=== PATIENT | female | born 1970 | race Caucasian/White ===

== ENCOUNTER 2016-09-29 20:24 | Inpatient (IN) | payer BC ==
[2016-09-29] MEDS ORDERED: NS 0.9% 1000 ML* 1,000 ML IV ONE ×2 (20:48→21:50)
[2016-09-29] MEDS ORDERED: Ondansetron INJ* 2 MG/ML VIAL IV ONE (21:51)
[2016-09-29] MEDS ORDERED: HYDROmorphone INJ* 1 MG/ML CARPUJECT SYRINGE IV ONE ×2 (21:51→22:49)
[2016-09-29] MEDS: HYDROmorphone INJ* 1 MG/ML CARPUJECT SYRINGE IV ONE (21:57)
[2016-09-29 21:58] LABS: Hematocrit 40 % (35-47); Hemoglobin 13.5 g/dl (12.0-16.0); Mean Corpuscular HGB Conc 34 g/dl (31-36); Mean Corpuscular Hemoglobin 27 pg (27-31); Mean Corpuscular Volume 80 fL (80-97); Mean Platelet Volume 9 um3 (7.4-10.4); Red Cell Distribution Width 13 % (10.5-15); White Blood Count 11.4 10^3/ul (3.5-10.8)
[2016-09-29 22:13] LABS: Albumin 3.6 g/dL (3.2-5.2); BUN/Creatinine Ratio 20.3 (8-20); EGFR African American 118.3 (>60); Globulin 3.5 g/dL (2-4); Total Bilirubin 1.1 mg/dL (0.2-1.0); Total Protein 7.1 g/dL (6.4-8.9)
--- NOTE | 2016-09-29 22:21 | RAD ---
HISTORY: Right lateral foot infection COMPARISONS: June 08, 2014 VIEWS: 2, Frontal and lateral views of the right foot FINDINGS: BONE DENSITY: Normal. BONES: There is periosteal reaction along the proximal first metatarsal is chronic compared to June 08, 2014. There is minimal periosteal reaction along the proximal fourth metatarsal that also appears similar to the 2013 examination. Elsewhere, there is no erosion or periosteal reaction. JOINTS: There is no arthropathy. ALIGNMENT: There is no dislocation. SOFT TISSUES: There is soft tissue swelling over the lateral aspect of the midfoot OTHER FINDINGS: None. IMPRESSION: NO NEW AREAS OF EROSION OR PERIOSTEAL REACTION. PLAIN RADIOGRAPH FINDINGS OF OSTEOMYELITIS ARE RELATIVELY LATE FINDINGS. IF THERE IS PERSISTENT CLINICAL CONCERN FOR OSTEOMYELITIS, RECOMMEND CORRELATION WITH FOLLOWUP IMAGING, THREE-PHASE BONE SCANNING, WHITE BLOOD CELL SCAN, AND/OR MRI OF THE AFFECTED REGION.
[2016-09-29 22:58] LABS: C Reactive Protein 136.18 mg/L (< 5.00)
[2016-09-29] MEDS ORDERED: Vancomycin(*) 1,500 MG in NS 0.9% 250 ML* 250 ML IVPB ONE (23:05)
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
[2016-09-29] MEDS ORDERED: NS 0.9% 250 ML* 250 ML ONE (23:29)
[2016-09-29] MEDS ORDERED: Vancomycin(*) 0 MG in NS 0.9% 250 ML* 250 ML IVPB SCH (23:45)
[2016-09-29] MEDS ORDERED: Vancomycin per Pharmacy* NOTE FOLLOW UP SCH (23:45)
[2016-09-29] MEDS ORDERED: Docusate CAP* 100 MG PO PRN (23:48)
[2016-09-29] MEDS ORDERED: Ondansetron INJ* 2 MG/ML VIAL IV PRN (23:48)
[2016-09-29] MEDS ORDERED: Senna TAB PO PRN (23:48)
[2016-09-29] MEDS ORDERED: Al Hydrox/Mg Hydrox/Simet LIQ* 30 ML UDC PO PRN (23:48)
[2016-09-29] MEDS ORDERED: Zolpidem TAB* 10 MG PO PRN (23:54)
[2016-09-30] MEDS ORDERED: Acetaminophen TAB* 325 MG PO ONE (00:03)
[2016-09-30] MEDS: HYDROmorphone INJ* 1 MG/ML CARPUJECT SYRINGE IV SLOW PU PRN ×4 (00:45→16:38)
[2016-09-30 00:46] LABS: Erythrocyte Sed Rate 66 mm/Hr (0-14)
[2016-09-30] MEDS: HYDROmorphone INJ* 1 MG/ML CARPUJECT SYRINGE IV ONE (01:42)
[2016-09-30] MEDS: Naproxen TAB* 250 MG PO SCH ×3 (01:43→23:15)
[2016-09-30] MEDS: NS 0.9% 1000 ML* 1,000 ML IV SCH ×3 (02:37→23:11)
[2016-09-30] MEDS ORDERED: Acetaminophen TAB* 325 MG PO PRN (04:00)
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
[2016-09-30] MEDS: Heparin VIAL(*) 5000 UNITS/ML VIAL (FIVE THOUSAND) SUBCUT SCH ×3 (05:47→20:30)
[2016-09-30 06:09] LABS: Hematocrit 35 % (35-47); Hemoglobin 11.6 g/dl (12.0-16.0); Mean Corpuscular HGB Conc 33 g/dl (31-36); Mean Corpuscular Hemoglobin 27 pg (27-31); Mean Corpuscular Volume 80 fL (80-97); Mean Platelet Volume 8 um3 (7.4-10.4); Red Blood Count 4.36 10^6/ul (4.0-5.4); Red Cell Distribution Width 13 % (10.5-15)
[2016-09-30 06:25] LABS: BUN/Creatinine Ratio 16.7 (8-20); C Reactive Protein 127.99 mg/L (< 5.00); Calcium 8.1 mg/dL (8.6-10.3); EGFR Non-African American 122.1 (>60); Potassium 3.4 mmol/L (3.5-5.0)
[2016-09-30 06:54] LABS: Erythrocyte Sed Rate 57 mm/Hr (0-14)
[2016-09-30] MEDS ORDERED: metroNIDAZOLE IV 500 MG/100ML* 500 MG/100 ML BAG IVPB SCH ×2 (07:00→21:00)
[2016-09-30] MEDS ORDERED: Levofloxacin 500 MG IVPREMIX(* 500 MG/100 ML BAG IVPB SCH (07:00)
[2016-09-30] MEDS: Magnesium Oxide TAB* 400 MG PO SCH ×2 (08:50→20:26)
[2016-09-30] MEDS: FLUoxetine CAP* 20 MG PO SCH (08:50)
[2016-09-30] MEDS: Calcium/Vitamin D TAB 250/125* TAB PO SCH ×2 (08:51→20:25)
[2016-09-30] MEDS: Montelukast Sodium TAB* 10 MG PO SCH (08:51)
[2016-09-30] MEDS: Cyanocobalamin TAB* 500 MCG PO SCH (08:51)
[2016-09-30] MEDS: buPROPion SR TAB.SR* 150 MG PO SCH (08:51)
[2016-09-30] MEDS: Topiramate TAB(*) 100 MG PO SCH ×2 (08:51→20:27)
[2016-09-30] MEDS: Cholecalciferol TAB* 1000 UNITS PO SCH (08:51)
[2016-09-30] MEDS: Fluticasone NASAL SPRAY 50MCG* 16 gm SPRAY BTL BOTH NARES SCH (08:52)
--- NOTE | 2016-09-30 09:07 | RAD ---
INDICATION: Paranasal sinus pain in a diabetic COMPARISON: None TECHNIQUE: Contiguous axial sections of the axial images of the sinuses were obtained and reconstructed in the coronal and sagittal planes. FINDINGS: The maxillary sinuses exhibit very mild mucosal thickening. The frontal, ethmoid and sphenoid sinuses are all clear. The ostiomeatal complexes appear patent on both sides. There is moderate deviation of the nasal septum toward the left side. The nasal passageways were otherwise clear. IMPRESSION: Very mild paranasal sinus mucosal disease as described above.
[2016-09-30] MEDS: ALPRAZOLAM 1 MG PO SCH (10:22)
[2016-09-30] MEDS: TAPENTADOL 150 MG PO SCH ×2 (10:22→20:28)
--- NOTE | 2016-09-30 13:50 | PN ---
Subjective Date of Service: 09/30/16 Interval History: Patient says pain controlled with Dilaudid. Said the lesion increased in size dramatically and redness over the last few days Objective Active Medications: Acetaminophen (Tylenol Tab*) 650 mg PO Q4H PRN PRN Reason: PAIN Al Hydrox/Mg Hydrox/Simethicone (Maalox Plus*) 30 ml PO Q6H PRN PRN Reason: INDIGESTION Alprazolam (Xanax Xr (Nf)) 1 mg PO DAILY [facility] Last Admin: 09/30/16 10:22 Dose: Not Given Bupropion HCl (Wellbutrin Sr Tab*) 150 mg PO DAILY [facility] Last Admin: 09/30/16 08:51 Dose: 150 mg Calcium/Vitamin D (Oscal D Tab 250/125*) 1 tab PO BID [facility] Last Admin: 09/30/16 08:51 Dose: 1 tab Cholecalciferol (Vitamin D Tab*) 1,000 units PO DAILY [facility] Last Admin: 09/30/16 08:51 Dose: 1,000 units Cyanocobalamin (Vitamin B12 Tab*) 1,000 mcg PO DAILY [facility] Last Admin: 09/30/16 08:51 Dose: 1,000 mcg Docusate Sodium (Colace Cap*) 100 mg PO BID PRN PRN Reason: CONSTIPATION Last Admin: 09/30/16 01:43 Dose: 100 mg Fluoxetine HCl (Prozac Cap*) 40 mg PO DAILY [facility] Last Admin: 09/30/16 08:50 Dose: 40 mg Fluticasone Propionate (Flonase Nasal [place] 50mcg*) 2 spray BOTH NARES DAILY [facility] Last Admin: 09/30/16 08:52 Dose: 2 spray Heparin Sodium (Porcine) (Heparin Vial(*)) 5,000 units SUBCUT Q8HR [facility] Last Admin: 09/30/16 05:47 Dose: 5,000 units Hydromorphone HCl (Dilaudid Iv*) 0.5 mg IV SLOW PU Q2HR PRN PRN Reason: PAIN Last Admin: 09/30/16 11:04 Dose: 0.5 mg Sodium Chloride (Ns 0.9% 1000 Ml*) 1,000 mls @ 125 mls/hr IV PER RATE [facility] Last Admin: 09/30/16 02:37 Dose: 125 mls/hr Levofloxacin/Dextrose (Levaquin 500 Mg Ivpremix(*)) 500 mg in 100 mls @ 100 mls /hr IVPB Q24H [facility] Last Admin: 09/30/16 08:02 Dose: 100 mls/hr Metronidazole/Sodium Chloride (Flagyl 500 Mg Ivpb*) 500 mg in 100 mls @ 100 mls /hr IVPB Q12HR [facility] Magnesium Oxide (Magox 400 Tab*) 400 mg PO BID [facility] Last Admin: 09/30/16 08:50 Dose: 400 mg Montelukast Sodium (Singulair Tab*) 10 mg PO DAILY [facility] Last Admin: 09/30/16 08:51 Dose: 10 mg Naproxen (Naprosyn Tab*) 500 mg PO Q12H [facility] Last Admin: 09/30/16 11:03 Dose: 500 mg Omeprazole (Prilosec Cap*) 40 mg PO DAILY [facility] Ondansetron HCl (Zofran Inj*) 4 mg IV Q4H PRN PRN Reason: NAUSEA/VOMITING Senna (Senokot Tab*) 1 tab PO BID PRN PRN Reason: CONSTIPATION Last Admin: 09/30/16 01:43 Dose: 1 tab Tapentadol (Nucynta Er (Nf)) 150 mg PO Q12HR [facility] Last Admin: 09/30/16 10:22 Dose: Not Given Tapentadol (Nucynta(Nf)) 50 mg PO BID PRN PRN Reason: PAIN Topiramate (Topamax(*)) 100 mg PO DAILY [facility] Last Admin: 09/30/16 08:51 Dose: 100 mg Topiramate (Topamax(*)) 200 mg PO 2100 [facility] Zolpidem Tartrate (Ambien Tab*) 10 mg PO BEDTIME PRN PRN Reason: SLEEP Vital Signs 09/30/16 09/30/16 09/30/16 01:40 01:42 01:46 Temperature 100.5 F Pulse Rate 103 Respiratory 22 24 Rate Blood Pressure 129/69 (mmHg) O2 Sat by Pulse 97 96 Oximetry 09/30/16 09/30/16 09/30/16 01:52 02:42 03:12 Temperature 100.1 F 98.5 F Pulse Rate 100 108 Respiratory 16 16 16 Rate Blood Pressure 122/70 108/61 (mmHg) O2 Sat by Pulse 99 Oximetry 09/30/16 09/30/16 09/30/16 03:19 03:42 06:47 Temperature 97.7 F Pulse Rate 84 Respiratory 16 16 16 Rate Blood Pressure 99/55 (mmHg) O2 Sat by Pulse 97 Oximetry 09/30/16 09/30/16 09/30/16 07:19 07:58 08:12 Temperature 97.6 F Pulse Rate 85 Respiratory 18 16 16 Rate Blood Pressure 95/50 (mmHg) O2 Sat by Pulse 98 98 Oximetry 09/30/16 09/30/16 09/30/16 08:58 10:56 11:04 Temperature 97.8 F Pulse Rate 86 Respiratory 16 16 Rate Blood Pressure 118/66 (mmHg) O2 Sat by Pulse 99 Oximetry 09/30/16 12:04 Temperature Pulse Rate Respiratory 16 Rate Blood Pressure (mmHg) O2 Sat by Pulse Oximetry Oxygen Devices in Use Now: None Eyes: No Scleral Icterus Ears/Nose/Mouth/Throat: Mucous Membranes Moist Neck: No Thyroid Enlargement, Masses Respiratory: Clear to Auscultation Cardiovascular: NL Sounds; No Murmurs; No JVD Abdominal: NL Sounds; No Tenderness; No Distention, No Hepatosplenomegaly Lymphatic: No Cervical Adenopathy Extremities: - - large area of erythema on the dorsal surface of the right foot draining pus Neurological: Alert and Oriented x 3 Result Diagrams: 09/30/16 05:56 09/30/16 05:56 Additional Lab and Data: Lab Results 09/29/16 09/29/16 09/29/16 Range/Units 21:40 21:40 21:40 WBC 11.4 H (3.5-10.8) 10^3/ul RBC 5.00 (4.0-5.4) 10^6/ul Hgb 13.5 (12.0-16.0) g/dl Hct 40 (35-47) % MCV 80 (80-97) fL MCH 27 (27-31) pg MCHC 34 (31-36) g/dl RDW 13 (10.5-15) % Plt Count 315 (150-450) 10^3/ul MPV 9 (7.4-10.4) um3 Neut % (Auto) 79.6 (38-83) % Lymph % (Auto) 10.2 L (25-47) % [place] % (Auto) 9.6 H (1-9) % Eos % (Auto) 0 (0-6) % Baso % (Auto) 0.6 (0-2) % Absolute Neuts (auto) 9.1 H (1.5-7.7) 10^3/ul Absolute Lymphs (auto) 1.2 (1.0-4.8) 10^3/ul Absolute Monos (auto) 1.1 H (0-0.8) 10^3/ul Absolute Eos (auto) 0 (0-0.6) 10^3/ul Absolute Basos (auto) 0.1 (0-0.2) 10^3/ul Absolute Nucleated RBC 0 10^3/ul Nucleated RBC % 0 INR (Anticoag Therapy) 1.05 (0.89-1.11) Sodium 130 L (133-145) mmol/L Potassium 4.0 (3.5-5.0) mmol/L Chloride 96 L (101-111) mmol/L Carbon Dioxide 23 (22-32) mmol/L Anion Gap 11 (2-11) mmol/L BUN 14 (6-24) mg/dL Creatinine 0.69 (0.51-0.95) mg/dL Est GFR ( Amer) 118.3 (>60) Est GFR (Non-Af Amer) 92.0 (>60) BUN/Creatinine Ratio 20.3 H (8-20) Glucose 432 H (70-100) mg/dL Lactic Acid (0.5-2.0) mmol/L Calcium 9.0 (8.6-10.3) mg/dL Total Bilirubin 1.10 H (0.2-1.0) mg/dL AST 9 L (13-39) U/L ALT 6 L (7-52) U/L Alkaline Phosphatase 88 (34-104) U/L C-Reactive Protein 136.18 H (< 5.00) mg/L Total Protein 7.1 (6.4-8.9) g/dL Albumin 3.6 (3.2-5.2) g/dL Globulin 3.5 (2-4) g/dL Albumin/Globulin Ratio 1.0 (1-3) 30/16 Range/Units 21:40 WBC (3.5-10.8) 10^3/ul RBC (4.0-5.4) 10^6/ul Hgb (12.0-16.0) g/dl Hct (35-47) % MCV (80-97) fL MCH (27-31) pg MCHC (31-36) g/dl RDW (10.5-15) % Plt Count (150-450) 10^3/ul MPV (7.4-10.4) um3 Neut % (Auto) (38-83) % Lymph % (Auto) (25-47) % [place] % (Auto) (1-9) % Eos % (Auto) (0-6) % Baso % (Auto) (0-2) % Absolute Neuts (auto) (1.5-7.7) 10^3/ul Absolute Lymphs (auto) (1.0-4.8) 10^3/ul Absolute Monos (auto) (0-0.8) 10^3/ul Absolute Eos (auto) (0-0.6) 10^3/ul Absolute Basos (auto) (0-0.2) 10^3/ul Absolute Nucleated RBC 10^3/ul Nucleated RBC % INR (Anticoag Therapy) (0.89-1.11) Sodium (133-145) mmol/L Potassium (3.5-5.0) mmol/L Chloride (101-111) mmol/L Carbon Dioxide (22-32) mmol/L Anion Gap (2-11) mmol/L BUN (6-24) mg/dL Creatinine (0.51-0.95) mg/dL Est GFR ( Amer) (>60) Est GFR (Non-Af Amer) (>60) BUN/Creatinine Ratio (8-20) Glucose (70-100) mg/dL Lactic Acid 1.2 (0.5-2.0) mmol/L Calcium (8.6-10.3) mg/dL Total Bilirubin (0.2-1.0) mg/dL AST (13-39) U/L ALT (7-52) U/L Alkaline Phosphatase (34-104) U/L C-Reactive Protein (< 5.00) mg/L Total Protein (6.4-8.9) g/dL Albumin (3.2-5.2) g/dL Globulin (2-4) g/dL Albumin/Globulin Ratio (1-3) Microbiology and Other Data: Microbiology 09/30/16 01:25 Skin and Soft Tissue MRSA/MSSA (PCR - Final Foot Right Mrsa Negative S.aureus Positive Gram Stain - Final Wound Culture - Preliminary Staphylococcus Aureus Assess/Plan/Problems-Billing Assessment: 46 year old who presented to [facility] [place] with redness and pus out of her right foot and admitted with cellulitis and abscess - Patient Problems (1) Cellulitis and abscess of foot Current Visit: Yes Status: Acute Code(s): L03.119 - CELLULITIS OF UNSPECIFIED PART OF LIMB; L02.619 - CUTANEOUS ABSCESS OF UNSPECIFIED FOOT SNOMED Code(s): 354238488 Comment: MSSA start Oxacillin 2 gram IV q 4h. Surgical Consult for I and D. (2) Diabetes mellitus Current Visit: Yes Status: Acute Code(s): E11.9 - TYPE 2 DIABETES MELLITUS WITHOUT COMPLICATIONS SNOMED Code(s): 76395227 Comment: Add SSI to pump as she is running high. (3) Chronic pain Current Visit: Yes Status: Acute Code(s): G89.29 - OTHER CHRONIC PAIN SNOMED Code(s): 76283154 Comment: Seems adequately controlled. Continue current regimen. (4) Depression Current Visit: Yes Status: Acute Code(s): F32.9 - MAJOR DEPRESSIVE DISORDER , SINGLE EPISODE, UNSPECIFIED SNOMED Code(s): 35887123 Comment: Stable. Continue current meds. (5) GERD (gastroesophageal reflux disease) Current Visit: Yes Status: Acute Code(s): K21.9 - GASTRO-ESOPHAGEAL REFLUX DISEASE WITHOUT ESOPHAGITIS SNOMED Code(s): 497661291 Comment: Stable. No issues. Continue Omeprazole. (6) Migraines Current Visit: Yes Status: Acute Code(s): G43.909 - MIGRAINE, UNSP, NOT INTRACTABLE, WITHOUT STATUS MIGRAINOSUS SNOMED Code(s): 06156521 Comment: No active issues. Continue topiramate. (7) DVT prophylaxis Current Visit: Yes Status: Acute Code(s): EIL1501 - SNOMED Code(s): 053986093 Comment: heparin (8) Full code status Current Visit: Yes Status: Acute Code(s): Z78.9 - OTHER SPECIFIED HEALTH STATUS SNOMED Code(s): 426469009
[2016-09-30] MEDS ORDERED: Dextrose 50% Syringe 50 ML* 25 GM/50 ML SYRINGE IV PUSH PRN (14:51)
[2016-09-30] MEDS: Oxacillin(*) 2 GM in NS 0.9% 100 ML* 100 ML IVPB SCH ×3 (15:36→23:11)
[2016-09-30] MEDS: Insulin LISPRO* 1 UNITS UNIT SUBCUT SCH ×2 (18:32→20:34)
[2016-09-30] MEDS: Omeprazole CAP* 20 MG PO SCH (20:25)
[2016-09-30] MEDS: TAPENTADOL 50 MG PO PRN (20:29)
--- NOTE | 2016-09-30 21:32 | RAD ---
HISTORY: Right leg edema TECHNIQUE: Multiple transverse and longitudinal ultrasound images were obtained of the veins of the right lower extremity using grayscale, color Doppler, and spectral Doppler imaging with and without compression and with augmentation. FINDINGS: VEINS: The common femoral vein, deep femoral vein, femoral vein and popliteal vein are compressible throughout their course, with normal flow on color Doppler imaging and normal response to augmentation on spectral Doppler imaging. SOFT TISSUES: Grossly normal. No large popliteal fossa cyst was identified. IMPRESSION: No sonographic evidence of deep vein thrombosis.
[2016-10-01] MEDS: TAPENTADOL 50 MG PO PRN ×3 (02:41→14:08)
[2016-10-01] MEDS: Oxacillin(*) 2 GM in NS 0.9% 100 ML* 100 ML IVPB SCH ×6 (03:24→23:07)
[2016-10-01 04:22] LABS: Budding Yeast Present (Absent); Urine Bacteria Absent (Absent); Urine Bilirubin Negative (Negative); Urine Glucose 2+(150 mg/dL) (Negative); Urine Nitrite Negative (Negative)
[2016-10-01] MEDS: Heparin VIAL(*) 5000 UNITS/ML VIAL (FIVE THOUSAND) SUBCUT SCH ×3 (05:55→20:47)
[2016-10-01] MEDS: Insulin LISPRO* 1 UNITS UNIT SUBCUT SCH ×4 (08:34→20:46)
[2016-10-01] MEDS: NS 0.9% 1000 ML* 1,000 ML IV SCH (08:35)
[2016-10-01] MEDS: Cyanocobalamin TAB* 500 MCG PO SCH (08:38)
[2016-10-01] MEDS: Magnesium Oxide TAB* 400 MG PO SCH ×2 (08:38→20:46)
[2016-10-01] MEDS: FLUoxetine CAP* 20 MG PO SCH (08:38)
[2016-10-01] MEDS: buPROPion SR TAB.SR* 150 MG PO SCH (08:38)
[2016-10-01] MEDS: Omeprazole CAP* 20 MG PO SCH (08:38)
[2016-10-01] MEDS: Calcium/Vitamin D TAB 250/125* TAB PO SCH ×2 (08:38→20:45)
[2016-10-01] MEDS: Cholecalciferol TAB* 1000 UNITS PO SCH (08:38)
[2016-10-01] MEDS: Topiramate TAB(*) 100 MG PO SCH ×2 (08:39→20:46)
[2016-10-01] MEDS: TAPENTADOL 150 MG PO SCH ×2 (08:40→20:47)
[2016-10-01] MEDS: ALPRAZOLAM 1 MG PO SCH (08:48)
[2016-10-01] MEDS: Fluticasone NASAL SPRAY 50MCG* 16 gm SPRAY BTL BOTH NARES SCH (08:49)
[2016-10-01] MEDS ORDERED: Silver Sulfadiazine 1%* 50 GM JAR TOPICAL SCH (09:00)
[2016-10-01] MEDS: Montelukast Sodium TAB* 10 MG PO SCH (10:22)
[2016-10-01] MEDS: Naproxen TAB* 250 MG PO SCH ×2 (12:29→23:10)
[2016-10-01] MEDS ORDERED: Zolpidem TAB* 10 MG PO PRN (12:42)
[2016-10-01] MEDS ORDERED: Tapentadol(NF) 50 MG TAB PO SCH (13:00)
--- NOTE | 2016-10-01 13:33 | PN ---
Subjective Date of Service: 10/01/16 Interval History: Patient seen this afternoon with sister at bedside. She states she feels she is doing better, sister agrees. No fever, chills. Erythema on the foot around the wound is improving. Family History: Unchanged from Admission Social History: Unchanged from Admission Past Medical History: Unchanged from Admission Objective Active Medications: Acetaminophen (Tylenol Tab*) 650 mg PO Q4H PRN PRN Reason: PAIN Al Hydrox/Mg Hydrox/Simethicone (Maalox Plus*) 30 ml PO Q6H PRN PRN Reason: INDIGESTION Alprazolam (Xanax Xr (Nf)) 1 mg PO DAILY [facility] Last Admin: 10/01/16 08:48 Dose: 1 mg Bupropion HCl (Wellbutrin Sr Tab*) 150 mg PO DAILY [facility] Last Admin: 10/01/16 08:38 Dose: 150 mg Calcium/Vitamin D (Oscal D Tab 250/125*) 1 tab PO BID [facility] Last Admin: 10/01/16 08:38 Dose: 1 tab Cholecalciferol (Vitamin D Tab*) 1,000 units PO DAILY [facility] Last Admin: 10/01/16 08:38 Dose: 1,000 units Cyanocobalamin (Vitamin B12 Tab*) 1,000 mcg PO DAILY [facility] Last Admin: 10/01/16 08:38 Dose: 1,000 mcg Dextrose (D50w Syringe 50 Ml*) 12.5 gm IV PUSH .FOR FS < 60 - SS PRN PRN Reason: FS < 60 Docusate Sodium (Colace Cap*) 100 mg PO BID PRN PRN Reason: CONSTIPATION Last Admin: 09/30/16 01:43 Dose: 100 mg Fluoxetine HCl (Prozac Cap*) 40 mg PO DAILY [facility] Last Admin: 10/01/16 08:38 Dose: 40 mg Fluticasone Propionate (Flonase Nasal [place] 50mcg*) 2 spray BOTH NARES DAILY [facility] Last Admin: 10/01/16 08:49 Dose: 2 spray Heparin Sodium (Porcine) (Heparin Vial(*)) 5,000 units SUBCUT Q8HR [facility] Last Admin: 10/01/16 12:30 Dose: 5,000 units Hydromorphone HCl (Dilaudid Iv*) 0.5 mg IV SLOW PU Q2HR PRN PRN Reason: PAIN Last Admin: 09/30/16 16:38 Dose: 0.5 mg Sodium Chloride (Ns 0.9% 1000 Ml*) 1,000 mls @ 125 mls/hr IV PER RATE [facility] Last Admin: 10/01/16 08:35 Dose: 125 mls/hr Oxacillin Sodium 2 gm/ Sodium (Chloride) 100 mls @ 200 mls/hr IVPB Q4H [facility] Last Admin: 10/01/16 12:29 Dose: 200 mls/hr Insulin Human Lispro (Humalog*) 0 units SUBCUT ACHS [facility] PRN Reason: Protocol Last Admin: 10/01/16 12:29 Dose: 3 unit Magnesium Oxide (Magox 400 Tab*) 400 mg PO BID [facility] Last Admin: 10/01/16 08:38 Dose: 400 mg Montelukast Sodium (Singulair Tab*) 10 mg PO DAILY [facility] Last Admin: 10/01/16 10:22 Dose: 10 mg Naproxen (Naprosyn Tab*) 500 mg PO Q12H [facility] Last Admin: 10/01/16 12:29 Dose: 500 mg Omeprazole (Prilosec Cap*) 40 mg PO DAILY [facility] Last Admin: 10/01/16 08:38 Dose: 40 mg Ondansetron HCl (Zofran Inj*) 4 mg IV Q4H PRN PRN Reason: NAUSEA/VOMITING Senna (Senokot Tab*) 1 tab PO BID PRN PRN Reason: CONSTIPATION Last Admin: 09/30/16 01:43 Dose: 1 tab Tapentadol (Nucynta Er (Nf)) 150 mg PO Q12HR [facility] Last Admin: 10/01/16 08:40 Dose: 150 mg Tapentadol (Nucynta(Nf)) 50 mg PO QID PRN PRN Reason: PAIN Topiramate (Topamax(*)) 100 mg PO DAILY [facility] Last Admin: 10/01/16 08:39 Dose: 100 mg Topiramate (Topamax(*)) 200 mg PO 2100 [facility] Last Admin: 09/30/16 20:27 Dose: 200 mg Vital Signs 09/30/16 09/30/16 09/30/16 15:31 16:38 17:38 Temperature 97.9 F Pulse Rate 98 Respiratory 16 16 16 Rate Blood Pressure 134/68 (mmHg) O2 Sat by Pulse 99 Oximetry 10/01/16 10/01/1610/01/17 04:41 07:51 08:40 Temperature 97.6 F Pulse Rate 86 Respiratory 16 17 18 Rate Blood Pressure 134/70 (mmHg) O2 Sat by Pulse 100 Oximetry 10/01/16 10/01/16 10/01/16 08:49 10:40 11:34 Temperature 97.5 F Pulse Rate 85 Respiratory 18 18 17 Rate Blood Pressure 130/69 (mmHg) O2 Sat by Pulse 98 Oximetry Oxygen Devices in Use Now: None Appearance: Middle-aged, F, laying in bed in NAD Eyes: No Scleral Icterus Ears/Nose/Mouth/Throat: Mucous Membranes Moist Neck: NL Appearance and Movements; NL JVP Respiratory: Symmetrical Chest Expansion and Respiratory Effort, Clear to Auscultation Cardiovascular: NL Sounds; No Murmurs; No JVD, RRR Abdominal: - - Soft, non-distended, mild TTP diffusely, no rebound/guarding, +BS Lymphatic: No Cervical Adenopathy Extremities: No Edema Skin: - - RLE with dressing in place (based on photos taken by family erythema is receding, still with significant ulceration on lateral aspect of dorsum of the R foot) Neurological: Alert and Oriented x 3 Result Diagrams: 09/30/16 05:56 09/30/16 05:56 Additional Lab and Data: Lab Results 09/29/16 09/29/16 09/29/16 Range/Units 21:40 21:40 21:40 WBC 11.4 H (3.5-10.8) 10^3/ul RBC 5.00 (4.0-5.4) 10^6/ul Hgb 13.5 (12.0-16.0) g/dl Hct 40 (35-47) % MCV 80 (80-97) fL MCH 27 (27-31) pg MCHC 34 (31-36) g/dl RDW 13 (10.5-15) % Plt Count 315 (150-450) 10^3/ul MPV 9 (7.4-10.4) um3 Neut % (Auto) 79.6 (38-83) % Lymph % (Auto) 10.2 L (25-47) % [place] % (Auto) 9.6 H (1-9) % Eos % (Auto) 0 (0-6) % Baso % (Auto) 0.6 (0-2) % Absolute Neuts (auto) 9.1 H (1.5-7.7) 10^3/ul Absolute Lymphs (auto) 1.2 (1.0-4.8) 10^3/ul Absolute Monos (auto) 1.1 H (0-0.8) 10^3/ul Absolute Eos (auto) 0 (0-0.6) 10^3/ul Absolute Basos (auto) 0.1 (0-0.2) 10^3/ul Absolute Nucleated RBC 0 10^3/ul Nucleated RBC % 0 INR (Anticoag Therapy) 1.05 (0.89-1.11) Sodium 130 L (133-145) mmol/L Potassium 4.0 (3.5-5.0) mmol/L Chloride 96 L (101-111) mmol/L Carbon Dioxide 23 (22-32) mmol/L Anion Gap 11 (2-11) mmol/L BUN 14 (6-24) mg/dL Creatinine 0.69 (0.51-0.95) mg/dL Est GFR ( Amer) 118.3 (>60) Est GFR (Non-Af Amer) 92.0 (>60) BUN/Creatinine Ratio 20.3 H (8-20) Glucose 432 H (70-100) mg/dL Lactic Acid (0.5-2.0) mmol/L Calcium 9.0 (8.6-10.3) mg/dL Total Bilirubin 1.10 H (0.2-1.0) mg/dL AST 9 L (13-39) U/L ALT 6 L (7-52) U/L Alkaline Phosphatase 88 (34-104) U/L C-Reactive Protein 136.18 H (< 5.00) mg/L Total Protein 7.1 (6.4-8.9) g/dL Albumin 3.6 (3.2-5.2) g/dL Globulin 3.5 (2-4) g/dL Albumin/Globulin Ratio 1.0 (1-3) 30/16 Range/Units 21:40 WBC (3.5-10.8) 10^3/ul RBC (4.0-5.4) 10^6/ul Hgb (12.0-16.0) g/dl Hct (35-47) % MCV (80-97) fL MCH (27-31) pg MCHC (31-36) g/dl RDW (10.5-15) % Plt Count (150-450) 10^3/ul MPV (7.4-10.4) um3 Neut % (Auto) (38-83) % Lymph % (Auto) (25-47) % [place] % (Auto) (1-9) % Eos % (Auto) (0-6) % Baso % (Auto) (0-2) % Absolute Neuts (auto) (1.5-7.7) 10^3/ul Absolute Lymphs (auto) (1.0-4.8) 10^3/ul Absolute Monos (auto) (0-0.8) 10^3/ul Absolute Eos (auto) (0-0.6) 10^3/ul Absolute Basos (auto) (0-0.2) 10^3/ul Absolute Nucleated RBC 10^3/ul Nucleated RBC % INR (Anticoag Therapy) (0.89-1.11) Sodium (133-145) mmol/L Potassium (3.5-5.0) mmol/L Chloride (101-111) mmol/L Carbon Dioxide (22-32) mmol/L Anion Gap (2-11) mmol/L BUN (6-24) mg/dL Creatinine (0.51-0.95) mg/dL Est GFR ( Amer) (>60) Est GFR (Non-Af Amer) (>60) BUN/Creatinine Ratio (8-20) Glucose (70-100) mg/dL Lactic Acid 1.2 (0.5-2.0) mmol/L Calcium (8.6-10.3) mg/dL Total Bilirubin (0.2-1.0) mg/dL AST (13-39) U/L ALT (7-52) U/L Alkaline Phosphatase (34-104) U/L C-Reactive Protein (< 5.00) mg/L Total Protein (6.4-8.9) g/dL Albumin (3.2-5.2) g/dL Globulin (2-4) g/dL Albumin/Globulin Ratio (1-3) Microbiology and Other Data: Microbiology 09/30/16 01:25 Skin and Soft Tissue MRSA/MSSA (PCR - Final Foot Right Mrsa Negative S.aureus Positive Gram Stain - Final Wound Culture - Preliminary Staphylococcus Aureus Assess/Plan/Problems-Billing Assessment: 46 year old who [place] [facility] [place] and pus out of her right foot and admitted with cellulitis and abscess - Patient Problems (1) Cellulitis and abscess of foot Current Visit: Yes Comment: Continue Oxacillin. Appreciate surgery input, Dr. Hanley did not feel there was any deeper collections but felt this may be more appropriate case for Dr. Denton. Will contact him as well as ID tomorrow. Hold on additional imaging for now. (2) Diabetes mellitus Current Visit: Yes Comment: BGs improved with addition of SSI to insulin pump (3) Chronic pain Current Visit: Yes Comment: Seems adequately controlled. Continue current regimen. (4) Depression Current Visit: Yes Comment: Stable. Continue current meds. (5) GERD (gastroesophageal reflux disease) Current Visit: Yes Comment: Stable. No issues. Continue Omeprazole. (6) Migraines Current Visit: Yes Comment: No active issues. Continue topiramate. (7) DVT prophylaxis Current Visit: Yes Comment: heparin (8) Full code status Current Visit: Yes
--- NOTE | 2016-10-01 22:48 | CONS ---
SURGICAL CONSULTATION: DATE OF CONSULT: 10/01/16 REQUESTING PHYSICIAN: Maynor Lora MD REASON FOR CONSULTATION: Abscess, right foot. HISTORY OF PRESENT ILLNESS: This is a 46-year-old female with type 1 diabetes, psoriatic arthritis, autoimmune disease, who presented to the emergency room on 09/29/16 with worsening right lateral ankle pain. The patient reports that there had been an injury at the site back in July or August and she had noted a scab. She thought it might be a bug bite. Upon further reflection, she thought it might have been an injury resulted from sitting cross leg and on the ground. This was in the area that would periodically scab over and reopen. On 09/25/16, it seemed to be more erythematous and painful and she started to soak the foot. The foot did drain white fluid that she felt was pus. The redness seemed to extend around the area further down the foot and up the foot and therefore, she went to the emergency room where she was evaluated by the emergency room physician who performed an incision and drainage and packed the wound. The patient was admitted to the hospitalist service, started on IV antibiotics, and administered pain medication and has noted some improvement in the erythema and pain. Surgical consultation was requested for evaluation of the wound. PAST MEDICAL HISTORY: Significant for the above-mentioned illnesses, migraine headaches, chronic pyelonephritis, ovarian dysgerminoma, Sjogren's syndrome, Paget's disease, major depression and anxiety, anemia and frozen shoulder. PAST SURGICAL HISTORY: She has had a ALEJO-BSO, bilateral cataract surgery, bilateral vitrectomies, ORIF of the left hip, skin grafting of the right leg, trigger fingers release x7, carpal tunnel release on the right. CURRENT MEDICATIONS: 1. Naprosyn. 2. Docusate. 3. Ambien. 4. Dilaudid. 5. Tapentadol. 6. Heparin subcu. 7. Xanax. 8. Os-Wenceslao. 9. Vitamin D. 10. Vitamin B12. 11. Prozac. 12. Flonase. 13. Magnesium oxide. 14. Singulair. 15. Nucynta. 16. Topamax. 17. Oxacillin. 18. Insulin. 19. Prilosec. 20. Silvadene cream. ALLERGIES: AMOXICILLIN, CLARITHROMYCIN, CLAVULANIC ACID. FAMILY HISTORY: Noncontributory. SOCIAL HISTORY: She lives with her sister, who is at her bedside. Does not smoke, drink alcohol, or use drugs. REVIEW OF SYSTEMS: Significant for the above-mentioned issues, otherwise was negative. PHYSICAL EXAMINATION: She is a 46-year-old female. She is 5 feet 9 inches tall , 215 pounds, temperature is 97.5, pulse 85, respirations 17, O2 saturation 98% on room air. Her blood pressure is 130/69. The right lower extremity foot exhibits erythema over the dorsum extending across an area approximately 6 cm with area of necrotic epidermis overlying this and in the central portion is a yellowed gauze wick with some adjacent 2 mm of necrotic tissue. The wick was removed. The epidermis that was loosely adherent was debrided with gauze and manipulation of the wound reveals no fluctuance. There is a small amount of purulent drainage. The wound was probed with a swab and there is some undermining towards the proximal and inferior aspects for about 2 cm. There was some bleeding and no new pockets of pus that were opened. DIAGNOSTIC STUDIES/LAB DATA: WBC from 09/30/16 were 9.0, hemoglobin was 11.6, platelets were 289. The CRP from 09/30/16 was 127. The imaging of the foot from 09/29/16 indicated plain radiograph findings of osteomyelitis with periosteal reaction along the proximal first metatarsal head and minimal periosteal reaction in the proximal fourth metatarsal with no erosions or periosteal reactions. MICROBIOLOGY: Wound cultures growing Staph aureus MRSA negative. IMPRESSION: A 46-year-old female with complex past medical history with a right foot infection with improving cellulitis, status post drainage of dorsal foot abscess. PLAN/RECOMMENDATIONS: I discussed the findings with the patient as well as with the hospitalist service. Present recommendation is to continue soaking the foot and use dry gauze and Kerlix wrap avoiding tape on the skin. Given the location of the wound and the possibility of osteomyelitis, I believe consultation with Ceferino Denton MD would be appropriate to further guide her treatment. Would continue her IV antibiotics. Would defer on further imaging to Dr. Denton and defer on antibiotics to Dr. Barba. CC: Eda Devine [place]* [id number]/[facility] #: [id number] [facility]
[2016-10-02] MEDS: TAPENTADOL 50 MG PO PRN ×3 (02:58→21:14)
[2016-10-02] MEDS: Oxacillin(*) 2 GM in NS 0.9% 100 ML* 100 ML IVPB SCH ×6 (03:01→22:34)
[2016-10-02] MEDS: Heparin VIAL(*) 5000 UNITS/ML VIAL (FIVE THOUSAND) SUBCUT SCH ×3 (05:21→21:15)
[2016-10-02] MEDS: NS 0.9% 1000 ML* 1,000 ML IV SCH (05:47)
[2016-10-02] MEDS: Fluticasone NASAL SPRAY 50MCG* 16 gm SPRAY BTL BOTH NARES SCH (08:19)
[2016-10-02] MEDS: Insulin LISPRO* 1 UNITS UNIT SUBCUT SCH ×4 (08:19→22:35)
[2016-10-02] MEDS: Cholecalciferol TAB* 1000 UNITS PO SCH (08:22)
[2016-10-02] MEDS: Magnesium Oxide TAB* 400 MG PO SCH ×2 (08:22→21:11)
[2016-10-02] MEDS: Cyanocobalamin TAB* 500 MCG PO SCH (08:22)
[2016-10-02] MEDS: Omeprazole CAP* 20 MG PO SCH (08:22)
[2016-10-02] MEDS: TAPENTADOL 150 MG PO SCH ×2 (08:23→21:13)
[2016-10-02] MEDS: Topiramate TAB(*) 100 MG PO SCH ×2 (08:23→21:12)
[2016-10-02] MEDS: buPROPion SR TAB.SR* 150 MG PO SCH (08:23)
[2016-10-02] MEDS: Montelukast Sodium TAB* 10 MG PO SCH (08:23)
[2016-10-02] MEDS: FLUoxetine CAP* 20 MG PO SCH (08:23)
[2016-10-02] MEDS: ALPRAZOLAM 1 MG PO SCH (08:23)
[2016-10-02] MEDS: Calcium/Vitamin D TAB 250/125* TAB PO SCH ×2 (08:23→21:11)
[2016-10-02] MEDS: Naproxen TAB* 250 MG PO SCH (11:34)
--- NOTE | 2016-10-02 11:54 | PN ---
Subjective Date of Service: 10/02/16 Interval History: Patient feeling OK today. Notes that she continues to have some pedal edema but feels like erythema is improving. No fever or chills. Eating well. Family History: Unchanged from Admission Social History: Unchanged from Admission Past Medical History: Unchanged from Admission Objective Active Medications: Acetaminophen (Tylenol Tab*) 650 mg PO Q4H PRN PRN Reason: PAIN Al Hydrox/Mg Hydrox/Simethicone (Maalox Plus*) 30 ml PO Q6H PRN PRN Reason: INDIGESTION Alprazolam (Xanax Xr (Nf)) 1 mg PO DAILY [facility] Last Admin: 10/02/16 08:23 Dose: 1 mg Bupropion HCl (Wellbutrin Sr Tab*) 150 mg PO DAILY [facility] Last Admin: 10/02/16 08:23 Dose: 150 mg Calcium/Vitamin D (Oscal D Tab 250/125*) 1 tab PO BID [facility] Last Admin: 10/02/16 08:23 Dose: 1 tab Cholecalciferol (Vitamin D Tab*) 1,000 units PO DAILY [facility] Last Admin: 10/02/16 08:22 Dose: 1,000 units Cyanocobalamin (Vitamin B12 Tab*) 1,000 mcg PO DAILY [facility] Last Admin: 10/02/16 08:22 Dose: 1,000 mcg Dextrose (D50w Syringe 50 Ml*) 12.5 gm IV PUSH .FOR FS < 60 - SS PRN PRN Reason: FS < 60 Docusate Sodium (Colace Cap*) 100 mg PO BID PRN PRN Reason: CONSTIPATION Last Admin: 09/30/16 01:43 Dose: 100 mg Fluoxetine HCl (Prozac Cap*) 40 mg PO DAILY [facility] Last Admin: 10/02/16 08:23 Dose: 40 mg Fluticasone Propionate (Flonase Nasal [place] 50mcg*) 2 spray BOTH NARES DAILY [facility] Last Admin: 10/02/16 08:19 Dose: 2 spray Heparin Sodium (Porcine) (Heparin Vial(*)) 5,000 units SUBCUT Q8HR [facility] Last Admin: 10/02/16 05:21 Dose: 5,000 units Hydromorphone HCl (Dilaudid Iv*) 0.5 mg IV SLOW PU Q2HR PRN PRN Reason: PAIN Last Admin: 09/30/16 16:38 Dose: 0.5 mg Sodium Chloride (Ns 0.9% 1000 Ml*) 1,000 mls @ 125 mls/hr IV PER RATE [facility] Last Admin: 10/02/16 05:47 Dose: 125 mls/hr Oxacillin Sodium 2 gm/ Sodium (Chloride) 100 mls @ 200 mls/hr IVPB Q4H [facility] Last Admin: 10/02/16 11:34 Dose: 200 mls/hr Insulin Human Lispro (Humalog*) 0 units SUBCUT ACHS [facility] PRN Reason: Protocol Last Admin: 10/02/16 08:19 Dose: 2 unit Magnesium Oxide (Magox 400 Tab*) 400 mg PO BID [facility] Last Admin: 10/02/16 08:22 Dose: 400 mg Montelukast Sodium (Singulair Tab*) 10 mg PO DAILY [facility] Last Admin: 10/02/16 08:23 Dose: 10 mg Naproxen (Naprosyn Tab*) 500 mg PO Q12H [facility] Last Admin: 10/02/16 11:34 Dose: 500 mg Omeprazole (Prilosec Cap*) 40 mg PO DAILY [facility] Last Admin: 10/02/16 08:22 Dose: 40 mg Ondansetron HCl (Zofran Inj*) 4 mg IV Q4H PRN PRN Reason: NAUSEA/VOMITING Senna (Senokot Tab*) 1 tab PO BID PRN PRN Reason: CONSTIPATION Last Admin: 09/30/16 01:43 Dose: 1 tab Tapentadol (Nucynta Er (Nf)) 150 mg PO Q12HR [facility] Last Admin: 10/02/16 08:23 Dose: 150 mg Tapentadol (Nucynta(Nf)) 50 mg PO QID PRN PRN Reason: PAIN Last Admin: 10/02/16 02:58 Dose: 50 mg Topiramate (Topamax(*)) 100 mg PO DAILY [facility] Last Admin: 10/02/16 08:23 Dose: 100 mg Topiramate (Topamax(*)) 200 mg PO 2100 [facility] Last Admin: 10/01/16 20:46 Dose: 200 mg Zolpidem Tartrate (Ambien Tab*) 10 mg PO BEDTIME PRN PRN Reason: SLEEP Vital Signs 10/01/16 10/01/16 10/01/16 14:08 15:09 16:08 Temperature 97.5 F Pulse Rate 83 Respiratory 18 16 18 Rate Blood Pressure 113/66 (mmHg) O2 Sat by Pulse 99 Oximetry 10/01/16 10/01/16 10/01/16 19:08 20:00 20:47 Temperature 97.4 F Pulse Rate 87 Respiratory 18 18 16 Rate Blood Pressure 97/53 (mmHg) O2 Sat by Pulse 99 Oximetry 10/01/16 10/01/16 10/02/16 22:47 23:49 02:58 Temperature 97.6 F Pulse Rate 83 Respiratory 16 15 16 Rate Blood Pressure 108/66 (mmHg) O2 Sat by Pulse 99 Oximetry 10/02/16 10/02/16 10/02/16 04:58 07:13 08:00 Temperature 98.2 F Pulse Rate 78 Respiratory 16 16 16 Rate Blood Pressure 107/54 (mmHg) O2 Sat by Pulse 97 97 Oximetry Oxygen Devices in Use Now: None Appearance: Young, F, laying in bed in NAD Eyes: No Scleral Icterus Ears/Nose/Mouth/Throat: Mucous Membranes Moist Neck: NL Appearance and Movements; NL JVP Respiratory: Symmetrical Chest Expansion and Respiratory Effort, Clear to Auscultation Cardiovascular: NL Sounds; No Murmurs; No JVD, RRR Abdominal: NL Sounds; No Tenderness; No Distention Lymphatic: No Cervical Adenopathy Extremities: - - Mild R pedal edema Skin: - - Raised, erythematous area over lateral dorsum of R foot with central ulceration with some fibrinous discharge Neurological: Alert and Oriented x 3 Result Diagrams: 09/30/16 05:56 09/30/16 05:56 Additional Lab and Data: Lab Results 09/29/16 09/29/16 09/29/16 Range/Units 21:40 21:40 21:40 WBC 11.4 H (3.5-10.8) 10^3/ul RBC 5.00 (4.0-5.4) 10^6/ul Hgb 13.5 (12.0-16.0) g/dl Hct 40 (35-47) % MCV 80 (80-97) fL MCH 27 (27-31) pg MCHC 34 (31-36) g/dl RDW 13 (10.5-15) % Plt Count 315 (150-450) 10^3/ul MPV 9 (7.4-10.4) um3 Neut % (Auto) 79.6 (38-83) % Lymph % (Auto) 10.2 L (25-47) % [place] % (Auto) 9.6 H (1-9) % Eos % (Auto) 0 (0-6) % Baso % (Auto) 0.6 (0-2) % Absolute Neuts (auto) 9.1 H (1.5-7.7) 10^3/ul Absolute Lymphs (auto) 1.2 (1.0-4.8) 10^3/ul Absolute Monos (auto) 1.1 H (0-0.8) 10^3/ul Absolute Eos (auto) 0 (0-0.6) 10^3/ul Absolute Basos (auto) 0.1 (0-0.2) 10^3/ul Absolute Nucleated RBC 0 10^3/ul Nucleated RBC % 0 INR (Anticoag Therapy) 1.05 (0.89-1.11) Sodium 130 L (133-145) mmol/L Potassium 4.0 (3.5-5.0) mmol/L Chloride 96 L (101-111) mmol/L Carbon Dioxide 23 (22-32) mmol/L Anion Gap 11 (2-11) mmol/L BUN 14 (6-24) mg/dL Creatinine 0.69 (0.51-0.95) mg/dL Est GFR ( Amer) 118.3 (>60) Est GFR (Non-Af Amer) 92.0 (>60) BUN/Creatinine Ratio 20.3 H (8-20) Glucose 432 H (70-100) mg/dL Lactic Acid (0.5-2.0) mmol/L Calcium 9.0 (8.6-10.3) mg/dL Total Bilirubin 1.10 H (0.2-1.0) mg/dL AST 9 L (13-39) U/L ALT 6 L (7-52) U/L Alkaline Phosphatase 88 (34-104) U/L C-Reactive Protein 136.18 H (< 5.00) mg/L Total Protein 7.1 (6.4-8.9) g/dL Albumin 3.6 (3.2-5.2) g/dL Globulin 3.5 (2-4) g/dL Albumin/Globulin Ratio 1.0 (1-3) 09/29/16 Range/Units 21:40 WBC (3.5-10.8) 10^3/ul RBC (4.0-5.4) 10^6/ul Hgb (12.0-16.0) g/dl Hct (35-47) % MCV (80-97) fL MCH (27-31) pg MCHC (31-36) g/dl RDW (10.5-15) % Plt Count (150-450) 10^3/ul MPV (7.4-10.4) um3 Neut % (Auto) (38-83) % Lymph % (Auto) (25-47) % [place] % (Auto) (1-9) % Eos % (Auto) (0-6) % Baso % (Auto) (0-2) % Absolute Neuts (auto) (1.5-7.7) 10^3/ul Absolute Lymphs (auto) (1.0-4.8) 10^3/ul Absolute Monos (auto) (0-0.8) 10^3/ul Absolute Eos (auto) (0-0.6) 10^3/ul Absolute Basos (auto) (0-0.2) 10^3/ul Absolute Nucleated RBC 10^3/ul Nucleated RBC % INR (Anticoag Therapy) (0.89-1.11) Sodium (133-145) mmol/L Potassium (3.5-5.0) mmol/L Chloride (101-111) mmol/L Carbon Dioxide (22-32) mmol/L Anion Gap (2-11) mmol/L BUN (6-24) mg/dL Creatinine (0.51-0.95) mg/dL Est GFR ( Amer) (>60) Est GFR (Non-Af Amer) (>60) BUN/Creatinine Ratio (8-20) Glucose (70-100) mg/dL Lactic Acid 1.2 (0.5-2.0) mmol/L Calcium (8.6-10.3) mg/dL Total Bilirubin (0.2-1.0) mg/dL AST (13-39) U/L ALT (7-52) U/L Alkaline Phosphatase (34-104) U/L C-Reactive Protein (< 5.00) mg/L Total Protein (6.4-8.9) g/dL Albumin (3.2-5.2) g/dL Globulin (2-4) g/dL Albumin/Globulin Ratio (1-3) Microbiology and Other Data: Microbiology 09/30/16 01:25 Skin and Soft Tissue MRSA/MSSA (PCR - Final Foot Right Mrsa Negative S.aureus Positive Gram Stain - Final Wound Culture - Preliminary Staphylococcus Aureus Assess/Plan/Problems-Billing Assessment: 46 year old who presented to [facility] with redness and pus out of her right foot and admitted with cellulitis and abscess - Patient Problems (1) Cellulitis and abscess of foot Current Visit: Yes Comment: Continue Oxacillin. Appreciate surgery input, Dr. Hanley did not feel there was any deeper collections but felt this may be more appropriate case for Dr. Denton. Will contact Dr. Denton and Dr. Barba tomorrow as they are off today due to the holiday. (2) Diabetes mellitus Current Visit: Yes Comment: BGs improved with addition of SSI to insulin pump (3) Chronic pain Current Visit: Yes Comment: Seems adequately controlled. Continue current regimen. (4) Depression Current Visit: Yes Comment: Stable. Continue current meds. (5) GERD (gastroesophageal reflux disease) Current Visit: Yes Comment: Stable. No issues. Continue Omeprazole. (6) Migraines Current Visit: Yes Comment: No active issues. Continue topiramate. (7) DVT prophylaxis Current Visit: Yes Comment: heparin (8) Full code status Current Visit: Yes
[2016-10-02] MEDS ORDERED: PTO: Eszopiclone (NF) 3 MG TAB PO PRN (21:40)
[2016-10-03] MEDS: Naproxen TAB* 250 MG PO SCH ×3 (00:35→23:32)
[2016-10-03] MEDS: NS 0.9% 1000 ML* 1,000 ML IV SCH (03:31)
[2016-10-03] MEDS: Oxacillin(*) 2 GM in NS 0.9% 100 ML* 100 ML IVPB SCH ×6 (03:31→23:27)
[2016-10-03] MEDS: Heparin VIAL(*) 5000 UNITS/ML VIAL (FIVE THOUSAND) SUBCUT SCH ×3 (04:53→21:24)
[2016-10-03] MEDS: Insulin LISPRO* 1 UNITS UNIT SUBCUT SCH (07:41)
[2016-10-03] MEDS: Cyanocobalamin TAB* 500 MCG PO SCH (08:39)
[2016-10-03] MEDS: Cholecalciferol TAB* 1000 UNITS PO SCH (08:39)
[2016-10-03] MEDS: buPROPion SR TAB.SR* 150 MG PO SCH (08:39)
[2016-10-03] MEDS: Montelukast Sodium TAB* 10 MG PO SCH (08:39)
[2016-10-03] MEDS: Calcium/Vitamin D TAB 250/125* TAB PO SCH ×2 (08:39→21:15)
[2016-10-03] MEDS: FLUoxetine CAP* 20 MG PO SCH (08:39)
[2016-10-03] MEDS: Fluticasone NASAL SPRAY 50MCG* 16 gm SPRAY BTL BOTH NARES SCH (08:39)
[2016-10-03] MEDS: TAPENTADOL 50 MG PO PRN ×2 (08:40→21:18)
[2016-10-03] MEDS: Magnesium Oxide TAB* 400 MG PO SCH ×2 (08:40→21:16)
[2016-10-03] MEDS: Omeprazole CAP* 20 MG PO SCH (08:40)
[2016-10-03] MEDS: TAPENTADOL 150 MG PO SCH ×2 (08:40→21:17)
[2016-10-03] MEDS: ALPRAZOLAM 1 MG PO SCH (08:40)
[2016-10-03] MEDS: Topiramate TAB(*) 100 MG PO SCH ×2 (08:44→21:16)
--- NOTE | 2016-10-03 11:47 | PN ---
Subjective Date of Service: 10/03/16 Interval History: Patient seen this morning. Says overall she is feeling better, and "more clear" that before. Did have hypoglycemia this morning which improved with oral intake. No fever or chills. Thinks RLE swelling is improving as well. Family History: Unchanged from Admission Social History: Unchanged from Admission Past Medical History: Unchanged from Admission Objective Active Medications: Acetaminophen (Tylenol Tab*) 650 mg PO Q4H PRN Al Hydrox/Mg Hydrox/Simethicone (Maalox Plus*) 30 ml PO Q6H PRN Alprazolam (Xanax Xr (Nf)) 1 mg PO DAILY [facility] Bupropion HCl (Wellbutrin Sr Tab*) 150 mg PO DAILY [facility] Calcium/Vitamin D (Oscal D Tab 250/125*) 1 tab PO BID [facility] Cholecalciferol (Vitamin D Tab*) 1,000 units PO DAILY [facility] Cyanocobalamin (Vitamin B12 Tab*) 1,000 mcg PO DAILY [facility] Dextrose (D50w Syringe 50 Ml*) 12.5 gm IV PUSH .FOR FS < 60 - SS PRN Docusate Sodium (Colace Cap*) 100 mg PO BID PRN Eszopiclone (Lunesta (Nf)) 3 mg PO BEDTIME PRN Fluoxetine HCl (Prozac Cap*) 40 mg PO DAILY [facility] Fluticasone Propionate (Flonase Nasal [place] 50mcg*) 2 spray BOTH NARES DAILY [facility] Heparin Sodium (Porcine) (Heparin Vial(*)) 5,000 units SUBCUT Q8HR [facility] Hydromorphone HCl (Dilaudid Iv*) 0.5 mg IV SLOW PU Q2HR PRN Sodium Chloride (Ns 0.9% 1000 Ml*) 1,000 mls @ 125 mls/hr IV PER RATE [facility] Oxacillin Sodium 2 gm/ Sodium (Chloride) 100 mls @ 200 mls/hr IVPB Q4H [facility] Magnesium Oxide (Magox 400 Tab*) 400 mg PO BID [facility] Montelukast Sodium (Singulair Tab*) 10 mg PO DAILY [facility] Naproxen (Naprosyn Tab*) 500 mg PO Q12H [facility] Omeprazole (Prilosec Cap*) 40 mg PO DAILY [facility] Ondansetron HCl (Zofran Inj*) 4 mg IV Q4H PRN Senna (Senokot Tab*) 1 tab PO BID PRN Tapentadol (Nucynta Er (Nf)) 150 mg PO Q12HR [facility] Tapentadol (Nucynta(Nf)) 50 mg PO QID PRN Topiramate (Topamax(*)) 100 mg PO DAILY [facility] Topiramate (Topamax(*)) 200 mg PO 2100 [facility] Vital Signs 10/02/16 10/02/16 10/02/16 14:23 15:03 16:23 Temperature 98.3 F Pulse Rate 90 Respiratory 16 16 18 Rate Blood Pressure 128/79 (mmHg) O2 Sat by Pulse 97 Oximetry 10/02/16 10/02/16 10/03/16 23:13 23:16 07:14 Temperature 98.4 F 97.1 F Pulse Rate 86 81 Respiratory 18 16 16 Rate Blood Pressure 129/68 130/72 (mmHg) O2 Sat by Pulse 96 96 Oximetry Oxygen Devices in Use Now: None Appearance: Middle-aged, F, laying in bed in NAD Eyes: No Scleral Icterus Ears/Nose/Mouth/Throat: Mucous Membranes Moist Neck: NL Appearance and Movements; NL JVP Respiratory: Symmetrical Chest Expansion and Respiratory Effort, Clear to Auscultation Cardiovascular: NL Sounds; No Murmurs; No JVD, RRR Abdominal: NL Sounds; No Tenderness; No Distention Lymphatic: No Cervical Adenopathy Extremities: No Edema Skin: - - RLE wrapped, did not evaluate today Neurological: Alert and Oriented x 3 Result Diagrams: 09/30/16 05:56 09/30/16 05:56 Additional Lab and Data: Lab Results 09/29/16 09/29/16 09/29/16 Range/Units 21:40 21:40 21:40 WBC 11.4 H (3.5-10.8) 10^3/ul RBC 5.00 (4.0-5.4) 10^6/ul Hgb 13.5 (12.0-16.0) g/dl Hct 40 (35-47) % MCV 80 (80-97) fL MCH 27 (27-31) pg MCHC 34 (31-36) g/dl RDW 13 (10.5-15) % Plt Count 315 (150-450) 10^3/ul MPV 9 (7.4-10.4) um3 Neut % (Auto) 79.6 (38-83) % Lymph % (Auto) 10.2 L (25-47) % [place] % (Auto) 9.6 H (1-9) % Eos % (Auto) 0 (0-6) % Baso % (Auto) 0.6 (0-2) % Absolute Neuts (auto) 9.1 H (1.5-7.7) 10^3/ul Absolute Lymphs (auto) 1.2 (1.0-4.8) 10^3/ul Absolute Monos (auto) 1.1 H (0-0.8) 10^3/ul Absolute Eos (auto) 0 (0-0.6) 10^3/ul Absolute Basos (auto) 0.1 (0-0.2) 10^3/ul Absolute Nucleated RBC 0 10^3/ul Nucleated RBC % 0 INR (Anticoag Therapy) 1.05 (0.89-1.11) Sodium 130 L (133-145) mmol/L Potassium 4.0 (3.5-5.0) mmol/L Chloride 96 L (101-111) mmol/L Carbon Dioxide 23 (22-32) mmol/L Anion Gap 11 (2-11) mmol/L BUN 14 (6-24) mg/dL Creatinine 0.69 (0.51-0.95) mg/dL Est GFR ( Amer) 118.3 (>60) Est GFR (Non-Af Amer) 92.0 (>60) BUN/Creatinine Ratio 20.3 H (8-20) Glucose 432 H (70-100) mg/dL Lactic Acid (0.5-2.0) mmol/L Calcium 9.0 (8.6-10.3) mg/dL Total Bilirubin 1.10 H (0.2-1.0) mg/dL AST 9 L (13-39) U/L ALT 6 L (7-52) U/L Alkaline Phosphatase 88 (34-104) U/L C-Reactive Protein 136.18 H (< 5.00) mg/L Total Protein 7.1 (6.4-8.9) g/dL Albumin 3.6 (3.2-5.2) g/dL Globulin 3.5 (2-4) g/dL Albumin/Globulin Ratio 1.0 (1-3) 12/30/16 Range/Units 21:40 WBC (3.5-10.8) 10^3/ul RBC (4.0-5.4) 10^6/ul Hgb (12.0-16.0) g/dl Hct (35-47) % MCV (80-97) fL MCH (27-31) pg MCHC (31-36) g/dl RDW (10.5-15) % Plt Count (150-450) 10^3/ul MPV (7.4-10.4) um3 Neut % (Auto) (38-83) % Lymph % (Auto) (25-47) % [place] % (Auto) (1-9) % Eos % (Auto) (0-6) % Baso % (Auto) (0-2) % Absolute Neuts (auto) (1.5-7.7) 10^3/ul Absolute Lymphs (auto) (1.0-4.8) 10^3/ul Absolute Monos (auto) (0-0.8) 10^3/ul Absolute Eos (auto) (0-0.6) 10^3/ul Absolute Basos (auto) (0-0.2) 10^3/ul Absolute Nucleated RBC 10^3/ul Nucleated RBC % INR (Anticoag Therapy) (0.89-1.11) Sodium (133-145) mmol/L Potassium (3.5-5.0) mmol/L Chloride (101-111) mmol/L Carbon Dioxide (22-32) mmol/L Anion Gap (2-11) mmol/L BUN (6-24) mg/dL Creatinine (0.51-0.95) mg/dL Est GFR ( Amer) (>60) Est GFR (Non-Af Amer) (>60) BUN/Creatinine Ratio (8-20) Glucose (70-100) mg/dL Lactic Acid 1.2 (0.5-2.0) mmol/L Calcium (8.6-10.3) mg/dL Total Bilirubin (0.2-1.0) mg/dL AST (13-39) U/L ALT (7-52) U/L Alkaline Phosphatase (34-104) U/L C-Reactive Protein (< 5.00) mg/L Total Protein (6.4-8.9) g/dL Albumin (3.2-5.2) g/dL Globulin (2-4) g/dL Albumin/Globulin Ratio (1-3) Microbiology and Other Data: Microbiology 09/30/16 01:25 Skin and Soft Tissue MRSA/MSSA (PCR - Final Foot Right Mrsa Negative S.aureus Positive Gram Stain - Final Wound Culture - Preliminary Staphylococcus Aureus Assess/Plan/Problems-Billing Assessment: 46 year old who presented to [facility] [place] [place] with redness and pus out of her right foot and admitted with cellulitis and abscess - Patient Problems (1) Cellulitis and abscess of foot Current Visit: Yes Comment: MSSA and GBS on wound culture. Continue Oxacillin. Dr. Denton and Dr. Barba to see patient today. MRI pending. (2) Diabetes mellitus Current Visit: Yes Comment: Hypoglycemic overnight, stopped additional HISS (3) Chronic pain Current Visit: Yes Comment: Seems adequately controlled. Continue current regimen. (4) Depression Current Visit: Yes Comment: Stable. Continue current meds. (5) GERD (gastroesophageal reflux disease) Current Visit: Yes Comment: Stable. No issues. Continue Omeprazole. (6) Migraines Current Visit: Yes Comment: No active issues. Continue topiramate. (7) DVT prophylaxis Current Visit: Yes Comment: heparin (8) Full code status Current Visit: Yes
[2016-10-03] MEDS ORDERED: Tetan/Diph/Pertus SYR(Tdap)* 0.5 ML SYR(BOOSTRIX) use SYR IM ONE (15:38)
--- NOTE | 2016-10-03 19:07 | RAD ---
INDICATION: Nonhealing foot wound in a diabetic COMPARISON: Right foot x-ray dated September 29, 2016 TECHNIQUE: Axial, sagittal and coronal T1 and T2-weighted images of the right foot were obtained. FINDINGS: Involving the proximal head of the third metatarsal there is increased T2 signal in the medullary cavity of the bone (coronal image 21 of 34 and sagittal image 12 of 30). On the corresponding T1-weighted images there is drop of signal at the same location. In the surrounding soft tissues there is mildly increased T2 signal predominantly along the inferior border of the third metatarsal. There is increased T2 signal in the subcutaneous fat overlying the dorsum of the foot with corresponding reduction in signal on the T1-weighted images. IMPRESSION: 1. NONCONTRAST MR FINDINGS ARE COMPATIBLE WITH CELLULITIS OVERLYING THE SUBCUTANEOUS TISSUE OF THE DORSUM OF THE FOOT. 2. FLUID BRIGHT FOCUS IN THE PROXIMAL HEAD OF THE THIRD METATARSAL IS MOST COMPATIBLE WITH OSTEOMYELITIS IN THIS CLINICAL SETTING.
[2016-10-03] MEDS: PTO: Eszopiclone (NF) 3 MG TAB PO PRN (21:18)
--- NOTE | 2016-10-03 21:28 | CONS ---
CONSULTATION REPORT: DATE OF CONSULT: 10/03/16 HISTORY OF PRESENT ILLNESS: Mara is a 46-year-old active female with type 1 diabetes, psoriatic arthritis and almost 3 months of pain and swelling in her right lateral mid foot. She is not sure of the etiology, may be a bug bite, may be a cat bite. She has a couple of cats at home, but she has had somewhat smoldering infection in that area of her right lateral mid foot and has had short courses of oral antibiotics. She was seen in the emergency room on and 1 cm incision was made over a pustule area for some drainage and cultures were sent. These grew out MRSA. She has been in the hospital since on vancomycin. At this point, I interviewed her and examined her foot today. She says overall the pain has decreased significantly as well as the swelling by her account. When examining her foot, she appears to have a warm sensate foot and no pain with range of motion of the ankle or the MTP joints. There is a 5 x 5 cm area of erythema over the dorsal lateral midfoot more less in the area of the sinus tarsi. There is a 1 cm open area in the middle with some fibrous debris. This is from the I and D in the emergency room I assume. I am unable to milk any significant fluid from the area of the debridement. In other words, there is no fluctuance. Plain radiographs of the right foot show no abnormality of the bones. Her ESR is 57, her glucose 256 has been poor control and her white blood count of 9.0. She is currently afebrile. She is on her way for an MRI which would be helpful to look for bone involvement given the chronicity of the infection. In the absence of bone involvement or significant soft tissue collection, I would envision a couple of weeks of IV antibiotics. If there is bone involvement, then she may need extended course of antibiotics and possibly bone debridement. We will follow up after the MRI is obtained. [id number]/[facility] #: [id number] MATT
--- NOTE | 2016-10-03 22:01 | CONS ---
CONSULTATION REPORT: DATE OF CONSULT: 10/03/16 REQUESTING PHYSICIAN: Dr. White. CONSULTING SERVICE: Infectious Disease. REASON FOR CONSULT: Right foot infection. IMPRESSION: 1. Right lateral midfoot abscess which initially drained spontaneously and then had a small pocket drained in the ER. Gram stain showed gram-positive cocci with cultures growing Staphylococcus aureus and group B streptococcus. Staphylococcus aureus is methicillin sensitive. She is improving on oxacillin, given the duration (approximately 2 months) since the wound started, there is a possibility of underlying acute osteomyelitis. 2. Type 1 diabetes with neuropathy. 3. Psoriatic arthritis. 4. ALLERGY TO AMOXICILLIN, CLARITHROMYCIN, which are both GI intolerance. RECOMMENDATIONS: 1. Agree with oxacillin 2 g IV every 4 hours. She is going to have an MRI now to look for osteomyelitis, that would help determine the duration of therapy. We will follow her foot closely to see if she ends up needing any debridement. 2. Tetanus shot which I ordered. HISTORY OF PRESENT ILLNESS: This is a 46-year-old woman with type 1 diabetes and neuropathy, admitted with right foot infection. She feels it developed about 2 months ago with an ulcer there. She was following with a clinical trial specialist. She had some various topical treatments. It helped a little bit but things seemed to progress in the wrong way. She thinks that it may have started as a bug bite. She does note, however, that a cat does claw and bit that part of her body and both these could also been a cat bite. Her last tetanus shot was over 10 years ago. She came to the hospital because of worsening swelling, redness in her whole foot. On the , she was febrile. She was started on broad-spectrum antibiotics. Her wound culture was taken with results as above. The blood cultures were negative. The redness, pain, and swelling has decreased over the last few days. She has not had a foot infection like this before. PAST MEDICAL HISTORY: 1. Type 1 diabetes with peripheral neuropathy. 2. Osteoporosis, multiple fractures. 3. Ovarian cancer, status post hysterectomy. 4. Psoriatic arthritis, on no treatment. 5. Asthma. 6. Chronic pain. 7. Depression. 8. Anxiety. 9. Gastroesophageal reflux disease. 10. Migraine. 11. Sjogren's syndrome. 12. Paget's disease. PAST SURGICAL HISTORY: 1. Status post left hip open reduction, internal fixation in 1993 after a rollerblading accident. 2. Right calf skin graft. 3. Status post multiple bilateral vitrectomies. 4. Status post hysterectomy. 5. Status post bilateral cataract removal. 6. Status post left breast lumpectomy. 7. Status post trigger finger release. 8. Status post right carpal tunnel release. ALLERGIES: AMOXICILLIN, CLARITHROMYCIN, and CLAVULANIC ACID with GI intolerance. MEDICATIONS: 1. Tylenol. 2. Xanax. 3. Calcium. 4. Cholecalciferol. 5. Vitamin B12. 6. Docusate. 7. Lunesta. 8. Fluoxetine. 9. Fluticasone nasal spray. 10. Heparin subcutaneous injection. 11. Singulair. 12. Oxacillin 2 g every 4 hours. 13. Omeprazole. 14. Senna. 15. Tapentadol. 16. Topiramate. 17. Wellbutrin. SOCIAL HISTORY: No travel or sick contacts. No injection drugs. There are cats at home. FAMILY HISTORY: No recurrent infections. REVIEW OF SYSTEMS: All negative except as noted above. PHYSICAL EXAM: Vital Signs: Temperature 36.2, heart rate 81, respiratory rate 16, blood pressure 130/72, O2 sat 96% on room air. General: She is awake and oriented x3, in no acute distress. HEENT: Pupils equal, round, and reactive to light without conjunctival hemorrhage. Oropharynx without lesions. Neck: Supple without nuchal rigidity. Lymph nodes: There is no cervical, supraclavicular, inguinal, axillary, or epitrochlear lymphadenopathy. Heart: Regular rate and rhythm without murmurs, rubs, or gallops. Lungs: Clear to auscultation bilaterally. Abdomen: Soft, nontender, and nondistended without hepatosplenomegaly. Skin: There is no rash or splinter hemorrhages. Musculoskeletal: Right lateral midfoot. There is 1.5 cm indurated area without surrounding fluctuance or crepitus. There is mild surrounding erythema. There is no expressible fluid. There is no pain with range of motion of the ankle. DIAGNOSTIC STUDIES/LAB DATA: White blood cell count 9, hemoglobin 11.6, platelets 289, creatinine 0.5, CRP was 136 on admission, ALT was 6. Please see impressions and recommendations as outlined above which I have discussed with Dr. Denton and Dr. White. Thanks for asking me to see Ms. Ford in consultation. [id number]/[facility] #: [id number] MTDNathalia
[2016-10-04] MEDS: NS 0.9% 1000 ML* 1,000 ML IV SCH ×3 (00:37→20:21)
[2016-10-04] MEDS: Oxacillin(*) 2 GM in NS 0.9% 100 ML* 100 ML IVPB SCH ×6 (03:02→23:26)
[2016-10-04] MEDS: Heparin VIAL(*) 5000 UNITS/ML VIAL (FIVE THOUSAND) SUBCUT SCH ×3 (06:08→21:50)
[2016-10-04] MEDS: ALPRAZOLAM 1 MG PO SCH (10:20)
[2016-10-04] MEDS: Magnesium Oxide TAB* 400 MG PO SCH ×2 (10:20→20:35)
[2016-10-04] MEDS: buPROPion SR TAB.SR* 150 MG PO SCH (10:21)
[2016-10-04] MEDS: Topiramate TAB(*) 100 MG PO SCH ×2 (10:21→20:38)
[2016-10-04] MEDS: Cholecalciferol TAB* 1000 UNITS PO SCH (10:21)
[2016-10-04] MEDS: Omeprazole CAP* 20 MG PO SCH (10:21)
[2016-10-04] MEDS: Calcium/Vitamin D TAB 250/125* TAB PO SCH ×2 (10:21→20:35)
[2016-10-04] MEDS: FLUoxetine CAP* 20 MG PO SCH (10:21)
[2016-10-04] MEDS: Cyanocobalamin TAB* 500 MCG PO SCH (10:22)
[2016-10-04] MEDS: Fluticasone NASAL SPRAY 50MCG* 16 gm SPRAY BTL BOTH NARES SCH (10:22)
[2016-10-04] MEDS: Montelukast Sodium TAB* 10 MG PO SCH (10:22)
[2016-10-04] MEDS: TAPENTADOL 150 MG PO SCH ×2 (10:23→20:35)
[2016-10-04] MEDS: TAPENTADOL 50 MG PO PRN ×3 (10:24→20:36)
--- NOTE | 2016-10-04 11:32 | PN ---
Subjective Date of Service: 10/04/16 Interval History: Patient seen this morning. Reports some occasional pain in the foot but nothing too significant. Has been eating and drinking well. No fever or chills. Upset to hear there is some bone involvement on MRI. Family History: Unchanged from Admission Social History: Unchanged from Admission Past Medical History: Unchanged from Admission Objective Active Medications: Acetaminophen (Tylenol Tab*) 650 mg PO Q4H PRN PRN Reason: PAIN Al Hydrox/Mg Hydrox/Simethicone (Maalox Plus*) 30 ml PO Q6H PRN PRN Reason: INDIGESTION Alprazolam (Xanax Xr (Nf)) 1 mg PO DAILY [facility] Last Admin: 10/04/16 10:20 Dose: 1 mg Bupropion HCl (Wellbutrin Sr Tab*) 150 mg PO DAILY [facility] Last Admin: 10/04/16 10:21 Dose: 150 mg Calcium/Vitamin D (Oscal D Tab 250/125*) 1 tab PO BID [facility] Last Admin: 10/04/16 10:21 Dose: 1 tab Cholecalciferol (Vitamin D Tab*) 1,000 units PO DAILY [facility] Last Admin: 10/04/16 10:21 Dose: 1,000 units Cyanocobalamin (Vitamin B12 Tab*) 1,000 mcg PO DAILY [facility] Last Admin: 10/04/16 10:22 Dose: 1,000 mcg Dextrose (D50w Syringe 50 Ml*) 12.5 gm IV PUSH .FOR FS < 60 - SS PRN PRN Reason: FS < 60 Docusate Sodium (Colace Cap*) 100 mg PO BID PRN PRN Reason: CONSTIPATION Last Admin: 09/30/16 01:43 Dose: 100 mg Eszopiclone (Lunesta (Nf)) 3 mg PO BEDTIME PRN PRN Reason: SLEEP Last Admin: 10/03/16 21:18 Dose: 3 mg Fluoxetine HCl (Prozac Cap*) 40 mg PO DAILY [facility] Last Admin: 10/04/16 10:21 Dose: 40 mg Fluticasone Propionate (Flonase Nasal [place] 50mcg*) 2 spray BOTH NARES DAILY [facility] Last Admin: 10/04/16 10:22 Dose: 2 spray Heparin Sodium (Porcine) (Heparin Vial(*)) 5,000 units SUBCUT Q8HR [facility] Last Admin: 10/04/16 06:08 Dose: 5,000 units Hydromorphone HCl (Dilaudid Iv*) 0.5 mg IV SLOW PU Q2HR PRN PRN Reason: PAIN Last Admin: 09/30/16 16:38 Dose: 0.5 mg Sodium Chloride (Ns 0.9% 1000 Ml*) 1,000 mls @ 125 mls/hr IV PER RATE [facility] Last Admin: 10/04/16 10:23 Dose: 125 mls/hr Oxacillin Sodium 2 gm/ Sodium (Chloride) 100 mls @ 200 mls/hr IVPB Q4H [facility] Last Admin: 10/04/16 07:24 Dose: 200 mls/hr Magnesium Oxide (Magox 400 Tab*) 400 mg PO BID [facility] Last Admin: 10/04/16 10:20 Dose: 400 mg Montelukast Sodium (Singulair Tab*) 10 mg PO DAILY [facility] Last Admin: 10/04/16 10:22 Dose: 10 mg Naproxen (Naprosyn Tab*) 500 mg PO Q12H [facility] Last Admin: 10/03/16 23:32 Dose: 500 mg Omeprazole (Prilosec Cap*) 40 mg PO DAILY [facility] Last Admin: 10/04/16 10:21 Dose: 40 mg Ondansetron HCl (Zofran Inj*) 4 mg IV Q4H PRN PRN Reason: NAUSEA/VOMITING Senna (Senokot Tab*) 1 tab PO BID PRN PRN Reason: CONSTIPATION Last Admin: 09/30/16 01:43 Dose: 1 tab Tapentadol (Nucynta Er (Nf)) 150 mg PO Q12HR [facility] Last Admin: 10/04/16 10:23 Dose: 150 mg Tapentadol (Nucynta(Nf)) 50 mg PO QID PRN PRN Reason: PAIN Last Admin: 10/04/16 10:24 Dose: 50 mg Topiramate (Topamax(*)) 100 mg PO DAILY [facility] Last Admin: 10/04/16 10:21 Dose: 100 mg Topiramate (Topamax(*)) 200 mg PO 2100 [facility] Last Admin: 10/03/16 21:16 Dose: 200 mg Vital Signs 10/03/16 10/03/16 10/03/16 15:23 20:00 21:17 Temperature 97.9 F Pulse Rate 89 Respiratory 16 17 16 Rate Blood Pressure 145/86 (mmHg) O2 Sat by Pulse 99 Oximetry 10/04/16 10/04/16 10/04/16 00:04 06:43 10:23 Temperature 98.4 F 97.7 F Pulse Rate 87 85 Respiratory 18 18 16 Rate Blood Pressure 117/68 120/72 (mmHg) O2 Sat by Pulse 97 96 Oximetry Oxygen Devices in Use Now: None Appearance: Middle-aged, F, laying in bed in NAD Eyes: No Scleral Icterus Ears/Nose/Mouth/Throat: Mucous Membranes Moist Neck: NL Appearance and Movements; NL JVP Respiratory: Symmetrical Chest Expansion and Respiratory Effort, Clear to Auscultation Cardiovascular: NL Sounds; No Murmurs; No JVD, RRR Abdominal: NL Sounds; No Tenderness; No Distention Lymphatic: No Cervical Adenopathy Extremities: No Edema Skin: - - RLE dressing in place Neurological: Alert and Oriented x 3 Result Diagrams: 09/30/16 05:56 09/30/16 05:56 Additional Lab and Data: Lab Results 09/29/16 09/29/16 09/29/16 Range/Units 21:40 21:40 21:40 WBC 11.4 H (3.5-10.8) 10^3/ul RBC 5.00 (4.0-5.4) 10^6/ul Hgb 13.5 (12.0-16.0) g/dl Hct 40 (35-47) % MCV 80 (80-97) fL MCH 27 (27-31) pg MCHC 34 (31-36) g/dl RDW 13 (10.5-15) % Plt Count 315 (150-450) 10^3/ul MPV 9 (7.4-10.4) um3 Neut % (Auto) 79.6 (38-83) % Lymph % (Auto) 10.2 L (25-47) % [place] % (Auto) 9.6 H (1-9) % Eos % (Auto) 0 (0-6) % Baso % (Auto) 0.6 (0-2) % Absolute Neuts (auto) 9.1 H (1.5-7.7) 10^3/ul Absolute Lymphs (auto) 1.2 (1.0-4.8) 10^3/ul Absolute Monos (auto) 1.1 H (0-0.8) 10^3/ul Absolute Eos (auto) 0 (0-0.6) 10^3/ul Absolute Basos (auto) 0.1 (0-0.2) 10^3/ul Absolute Nucleated RBC 0 10^3/ul Nucleated RBC % 0 INR (Anticoag Therapy) 1.05 (0.89-1.11) Sodium 130 L (133-145) mmol/L Potassium 4.0 (3.5-5.0) mmol/L Chloride 96 L (101-111) mmol/L Carbon Dioxide 23 (22-32) mmol/L Anion Gap 11 (2-11) mmol/L BUN 14 (6-24) mg/dL Creatinine 0.69 (0.51-0.95) mg/dL Est GFR ( Amer) 118.3 (>60) Est GFR (Non-Af Amer) 92.0 (>60) BUN/Creatinine Ratio 20.3 H (8-20) Glucose 432 H (70-100) mg/dL Lactic Acid (0.5-2.0) mmol/L Calcium 9.0 (8.6-10.3) mg/dL Total Bilirubin 1.10 H (0.2-1.0) mg/dL AST 9 L (13-39) U/L ALT 6 L (7-52) U/L Alkaline Phosphatase 88 (34-104) U/L C-Reactive Protein 136.18 H (< 5.00) mg/L Total Protein 7.1 (6.4-8.9) g/dL Albumin 3.6 (3.2-5.2) g/dL Globulin 3.5 (2-4) g/dL Albumin/Globulin Ratio 1.0 (1-3) 09/29/16 Range/Units 21:40 WBC (3.5-10.8) 10^3/ul RBC (4.0-5.4) 10^6/ul Hgb (12.0-16.0) g/dl Hct (35-47) % MCV (80-97) fL MCH (27-31) pg MCHC (31-36) g/dl RDW (10.5-15) % Plt Count (150-450) 10^3/ul MPV (7.4-10.4) um3 Neut % (Auto) (38-83) % Lymph % (Auto) (25-47) % [place] % (Auto) (1-9) % Eos % (Auto) (0-6) % Baso % (Auto) (0-2) % Absolute Neuts (auto) (1.5-7.7) 10^3/ul Absolute Lymphs (auto) (1.0-4.8) 10^3/ul Absolute Monos (auto) (0-0.8) 10^3/ul Absolute Eos (auto) (0-0.6) 10^3/ul Absolute Basos (auto) (0-0.2) 10^3/ul Absolute Nucleated RBC 10^3/ul Nucleated RBC % INR (Anticoag Therapy) (0.89-1.11) Sodium (133-145) mmol/L Potassium (3.5-5.0) mmol/L Chloride (101-111) mmol/L Carbon Dioxide (22-32) mmol/L Anion Gap (2-11) mmol/L BUN (6-24) mg/dL Creatinine (0.51-0.95) mg/dL Est GFR ( Amer) (>60) Est GFR (Non-Af Amer) (>60) BUN/Creatinine Ratio (8-20) Glucose (70-100) mg/dL Lactic Acid 1.2 (0.5-2.0) mmol/L Calcium (8.6-10.3) mg/dL Total Bilirubin (0.2-1.0) mg/dL AST (13-39) U/L ALT (7-52) U/L Alkaline Phosphatase (34-104) U/L C-Reactive Protein (< 5.00) mg/L Total Protein (6.4-8.9) g/dL Albumin (3.2-5.2) g/dL Globulin (2-4) g/dL Albumin/Globulin Ratio (1-3) Microbiology and Other Data: Microbiology 09/30/16 01:25 Skin and Soft Tissue MRSA/MSSA (PCR - Final Foot Right Mrsa Negative S.aureus Positive Gram Stain - Final Wound Culture - Preliminary Staphylococcus Aureus Assess/Plan/Problems-Billing Assessment: 46 year old who presented to [facility] with redness and pus out of her right foot and admitted with cellulitis and abscess - Patient Problems (1) Cellulitis and abscess of foot Current Visit: Yes Comment: MSSA and GBS on wound culture. Continue Oxacillin for now. MRI shows 3rd metatarsal head osteo. Will await further recommendations from ID and Ortho. PICC ordered. Patient may prefer coming to infusion clinic rather than home therapy. (2) Diabetes mellitus Current Visit: Yes Comment: Slight hypoglycemia which patient thinks is because she didnt get her usual late night snack. Continue insulin pump with no additional therapy. (3) Chronic pain Current Visit: Yes Comment: Seems adequately controlled. Continue current regimen. (4) Depression Current Visit: Yes Comment: Stable. Continue current meds. (5) GERD (gastroesophageal reflux disease) Current Visit: Yes Comment: Stable. No issues. Continue Omeprazole. (6) Migraines Current Visit: Yes Comment: No active issues. Continue topiramate. (7) DVT prophylaxis Current Visit: Yes Comment: heparin (8) Full code status Current Visit: Yes
[2016-10-04] MEDS: Naproxen TAB* 250 MG PO SCH ×2 (12:12→23:25)
[2016-10-04] MEDS: PTO: Eszopiclone (NF) 3 MG TAB PO PRN (20:36)
[2016-10-05] MEDS: Oxacillin(*) 2 GM in NS 0.9% 100 ML* 100 ML IVPB SCH ×3 (03:21→14:12)
[2016-10-05] MEDS: Heparin VIAL(*) 5000 UNITS/ML VIAL (FIVE THOUSAND) SUBCUT SCH ×2 (05:51→14:55)
[2016-10-05] MEDS: NS 0.9% 1000 ML* 1,000 ML IV SCH (05:57)
[2016-10-05 08:05] VITALS: BP 137/78
[2016-10-05] MEDS: Cyanocobalamin TAB* 500 MCG PO SCH (08:30)
[2016-10-05] MEDS: buPROPion SR TAB.SR* 150 MG PO SCH (08:30)
[2016-10-05] MEDS: Calcium/Vitamin D TAB 250/125* TAB PO SCH (08:30)
[2016-10-05] MEDS: Fluticasone NASAL SPRAY 50MCG* 16 gm SPRAY BTL BOTH NARES SCH (08:30)
[2016-10-05] MEDS: Cholecalciferol TAB* 1000 UNITS PO SCH (08:31)
[2016-10-05] MEDS: Omeprazole CAP* 20 MG PO SCH (08:31)
[2016-10-05] MEDS: FLUoxetine CAP* 20 MG PO SCH (08:31)
[2016-10-05] MEDS: Magnesium Oxide TAB* 400 MG PO SCH (08:32)
[2016-10-05] MEDS: Topiramate TAB(*) 100 MG PO SCH (08:32)
[2016-10-05] MEDS: Montelukast Sodium TAB* 10 MG PO SCH (08:32)
[2016-10-05] MEDS: ALPRAZOLAM 1 MG PO SCH (08:35)
[2016-10-05] MEDS: TAPENTADOL 50 MG PO PRN ×2 (08:36→15:41)
[2016-10-05] MEDS: TAPENTADOL 150 MG PO SCH (08:36)
--- NOTE | 2016-10-05 09:02 | PN ---
Progress Note - Progress Note SOAP: Subjective: [Pt was seen this morning in bed. Pt was sitting up and states that she is in no acute pain. Pt denies any fevers, chills, night sweats, SOB or palpitations.] Objective: [General: pt is awake, alert and oriented. In no acute distress. MSK: RLE: Dressing is c/d/i. The wound has some mild erythema surrounding it. The wound is filled with yellow mucus. Pt is able to move toes without pain and has sensation to light touch in area surrounding the wound. Vital Signs Temp 97.8 F 10/05/16 07:56 Pulse 82 10/05/16 07:56 Resp 16 10/05/16 08:36 BP 137/78 10/05/16 07:56 Pulse Ox 100 10/05/16 07:56 Intake & Output 10/04/16 10/05/16 10/05/16 18:59 06:59 18:59 Intake Total 1120 2376 Balance 1120 2376 Intake: IV Fluids 2376 NS (0.9%) 2376 Oral 1120 0 Other: Estimated Void Medium Medium Date of Last Bowel 10/04/2016 Movement # Bowel Movements 1 1 Estimated Stool Amount Medium # Voids 1 1 Microbiology 09/29/16 21:40 Aerobic Blood Culture - Final Blood Venous No Growth Day 5 Anaerobic Blood Culture - Final No Growth Day 5 Blood Culture - Final 09/29/16 21:30 Aerobic Blood Culture - Final Blood Venous No Growth Day 5 Anaerobic Blood Culture - Final No Growth Day 5 Blood Culture - Final 09/30/16 01:25 Skin and Soft Tissue MRSA/MSSA (PCR - Final Foot Right Mrsa Negative S.aureus Positive Gram Stain - Final Wound Culture - Final Staphylococcus Aureus Strep Agalactiae - (Group B) 10/01/16 04:00 Urine Culture - Final Urine No Growth (<1,000 CFU/mL) ] Assessment: [Cellulitis of R midfoot, Osteomyelitis proximal head of 3rd metatarsal. ] Plan: [Continue antibiotics. Will continue to monitor for need for surgical debridement ] Continue care for co-morbidities per hospitalists.
--- NOTE | 2016-10-05 10:37 | PN ---
Progress Note - Progress Note SOAP: Subjective: DOS: 10/05/16 CC: foot infection HPI: 46 yo T1DM with chronic right midfoot ulcer admitted with wound infection and cellulitis. Swelling, pain, redness improving, no drainage now. No fever, rash, or diarrhea. Objective: [] Vital Signs Temp 36.6 C 10/05/16 07:56 Pulse 82 10/05/16 07:56 Resp 16 10/05/16 08:36 BP 137/78 10/05/16 07:56 Pulse Ox 100 10/05/16 07:56 Intake & Output 10/04/16 10/05/16 10/05/16 18:59 06:59 18:59 Intake Total 1120 2376 120 Balance 1120 2376 120 Intake: IV Fluids 2376 NS (0.9%) 2376 Oral 1120 0 120 Other: Estimated Void Medium Medium Date of Last Bowel 10/04/2016 Movement # Bowel Movements 1 1 Estimated Stool Amount Medium # Voids 1 1 Gen:Awake, Ox3 HEENT:PERRL, MMM Neck:supple Heart:RRR no murmur Lungs:CTA BL Abd:+BS NTND soft Skin: no rash MSK: R lateral midfoot 1.5 cm ulcer with fibrin, mild surrounding edema, no erythema or fluctuance Microbiology 09/29/16 21:40 Blood Venous Aerobic Blood Culture - Final No Growth Day 5 09/29/16 21:40 Blood Venous Anaerobic Blood Culture - Final No Growth Day 5 09/29/16 21:40 Blood Venous Blood Culture - Final 09/29/16 21:30 Blood Venous Aerobic Blood Culture - Final No Growth Day 5 09/29/16 21:30 Blood Venous Anaerobic Blood Culture - Final No Growth Day 5 09/29/16 21:30 Blood Venous Blood Culture - Final Assessment: 1. Right midfoot osteomyelitis, chronic, diabetes related; due to MSSA and Grp B Strep 2. Right midfoot chronic non pressure wound, with cellulitis and myositis both improving 3. T1 DM with neuropathy 4. amox allergy, tolerating oxacillin Plan: 1. Oxacillin 2 gm iv Q4hrs day 6, can use ceftriaxone 2 gm IV Q24hrs for discharge; orders written for this for 5 more weeks with weekly cbc, cmp, crp, dressing changes. 2. follow up with me and Dr Denton as outpatient. May need debridement of bone eventually.
--- NOTE | 2016-10-05 11:50 | DCNOTE ---
Patient seen this morning. Feels well. Pleased she will be going home today. On exam, RRR, s1 and s2 present, no m/g/r, lungs CTA B/L, no w/r/r, abd soft, NTND, BS+, RLE wrapped D/C today on CTX daily which will continue in infusion center. No surgical intervention at this point, will continue to follow-up with Dr. Denton as an outpatient.
[2016-10-05] MEDS ORDERED: cefTRIAXone(*) 2 GM in NS 0.9% 100 ML* 100 ML IVPB SCH (12:00)
[2016-10-05] MEDS: Naproxen TAB* 250 MG PO SCH (14:54)
--- NOTE | 2016-10-06 14:27 | DS ---
DISCHARGE SUMMARY: DATE OF ADMISSION: 09/30/16 DATE OF DISCHARGE: 10/05/16 PRIMARY CARE PHYSICIAN: Dr. Levi. CONSULTS DURING HOSPITALIZATION: Dr. Eloy Hanley, Surgery; Dr. Ceferino Denton , Orthopedics; Dr. Martin Barba, Infectious Diseases. PRINCIPAL DISCHARGE DIAGNOSES: Right lower extremity abscess and third metatarsal head osteomyelitis. SECONDARY DIAGNOSES: 1. Type 1 diabetes with insulin pump. 2. Depression. 3. Anxiety. 4. Gastroesophageal reflux disease. 5. Migraine. 6. Sjogren's syndrome. 7. Chronic pain. 8. Psoriatic arthritis. STUDIES DURING HOSPITALIZATION: 1. Foot x-ray. Impression: No new areas of erosion or periosteal reaction. Plain radiographic findings of osteomyelitis are relatively late findings. If there is persistent clinical concern for osteomyelitis, recommend correlation with followup imaging. 2. CT sinus. Impression: Very mild paranasal sinus mucosal disease as described above. 3. Right lower extremity Doppler. Impression: No sonographic evidence of DVT. 4. MRI of the right lower extremity. Impression: Noncontrast MRI findings are compatible with cellulitis overlying the subcutaneous tissue at the dorsum of the foot. Bright focus in the proximal head of the third metatarsal is most compatible with osteomyelitis in the clinical setting. DISCHARGE MEDICATIONS: 1. Ceftriaxone 2 g IV daily through the Infusion Center. 2. Xanax 1 mg by mouth daily as needed for anxiety. 3. Prozac 40 mg by mouth daily. 4. Bupropion 150 mg by mouth daily. 5. Nucynta extended release 150 mg by mouth 2 times daily. 6. Nucynta 50 mg by mouth 4 times daily. 7. Topamax 100 mg by mouth in the morning and 200 mg by mouth at night. 8. Enalapril 10 mg by mouth nightly. 9. GenTeal PM 1 application to both eyes nightly. 10. Lunesta 3 mg by mouth at bedtime as needed for sleep. 11. Flonase 1 spray in both nares at bedtime. 12. NovoLog insulin pump as instructed. 13. Singulair 10 mg by mouth nightly. 14. Naproxen 440 mg by mouth daily. 15. Omeprazole 20 mg by mouth nightly. 16. Systane 1 drop in both eyes every hour as needed. 17. Calcium carbonate with vitamin D 600 mg by mouth two times daily. 18. Vitamin D one tablet by mouth two times daily. 19. Premarin 1 application vaginally weekly. 20. Vitamin B12 at 1 mg by mouth two times daily. 21. Prolia. 23. Unclear if the patient is still dronabinol 5 mg by mouth nightly. HISTORY OF PRESENT ILLNESS AND HOSPITAL SUMMARY: Please see the full history and physical by Dr. Goran Duran for full details. Briefly, Ms. Ford is a 46 -year- old female with past medical history as above, who presented to the hospital with enlarging redness, swelling, and drainage of her right foot. She came to the hospital and was felt to likely have an abscess there. She underwent an I and D by Dr. Ash in the emergency department and was started on IV vancomycin. Dr. Duran felt that the patient's infection may be deeper than this and a surgical consultation was obtained. Dr. Hanley evaluated the patient and did not feel that there was any deeper infection. However, he did recommend an orthopedic consult due to concern for possible osteomyelitis. An MRI was obtained, which showed osteomyelitis of the third metatarsal head. Dr. Denton and Dr. Barba were both consulted. Dr. Denton did not feel there was any surgical debridement necessary at this time. The patient's wound culture grew MSSA as well as group B strep. The patient was transitioned to oxacillin for a number of days in the hospital and Dr. Barba felt that she could be discharged once daily ceftriaxone. The patient did not feel that she could handle the infusions at home, so she will come to the Infusion Center daily for this treatment. She will follow up with Dr. Barba and Dr. Denton in the clinic. TIME SPENT: Total time spent on this discharge was 45 minutes. This is a summary of the hospitalization. Please see the full medical record for further details. CC: Dr. Levi* [id number]/[facility] #: [id number] [facility]
== END 2016-10-05 17:20 | disposition home or self-care (01) | DRG 383 ==
LOC: ED 20:24 → MED 09-30 00:54
PROVIDERS: ADMIT Pediatrics; ATTEND Hospitalist
PROC: 0Y9M0ZZ Drainage of Right Foot, Open Approach (ICD-10-PCS; principal; 2016-10-05)
DX: L02.415 Cutaneous abscess of right lower limb (principal); E10.621 Type 1 diabetes mellitus with foot ulcer; E10.40 Type 1 diabetes mellitus with diabetic neuropathy, unspecified; M35.00 Sjogren syndrome, unspecified; E10.65 Type 1 diabetes mellitus with hyperglycemia; M86.8X7 Other osteomyelitis, ankle and foot; L97.419 Non-pressure chronic ulcer of right heel and midfoot with unspecified severity; E10.69 Type 1 diabetes mellitus with other specified complication; F32.9 Major depressive disorder, single episode, unspecified; F41.9 Anxiety disorder, unspecified; K21.9 Gastro-esophageal reflux disease without esophagitis; G43.909 Migraine, unspecified, not intractable, without status migrainosus; G89.29 Other chronic pain; L40.50 Arthropathic psoriasis, unspecified; Z79.4 Long term (current) use of insulin; B95.61 Methicillin susceptible Staphylococcus aureus infection as the cause of diseases classified elsewhere; Z98.42 Cataract extraction status, left eye; Z98.41 Cataract extraction status, right eye; M81.0 Age-related osteoporosis without current pathological fracture; Z85.43 Personal history of malignant neoplasm of ovary; Z88.0 Allergy status to penicillin; Z88.8 Allergy status to other drugs, medicaments and biological substances; J45.909 Unspecified asthma, uncomplicated; Z87.440 Personal history of urinary (tract) infections
CPT/HCPCS: 36415; 70486; 80048; 80053; 81003; 81015; 83605; 84702; 85025; 85610; 85652; 86140; 87040; 87070; 87077; 87086; 87184; 87186; 87205; 87640; 87641; 90715; A9270-GY; C1751; J0696; J1170; J1644; J1956; J2405; J2700; J3370

== ENCOUNTER 2017-02-26 12:59 | Emergency (ER) | payer MEDICAID ==
[2017-02-26 15:03] VITALS: BP 132/83
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
--- NOTE | 2017-02-26 16:40 | RAD ---
INDICATION: Right foot pain. Cellulitis. COMPARISON: October 19, 2016 TECHNIQUE: AP, lateral, and oblique views were obtained. FINDINGS: There is a mildly distracted intra-articular fracture involving the distal aspect of the proximal phalanx of the great toe. There no other acute fractures. There is degenerative change about the mid foot. There are mild hammertoe deformities. The soft tissues are normal. IMPRESSION: FRACTURE OF THE GREAT TOE DESCRIBED. NO ADDITIONAL CHANGES.
[2017-02-26] MEDS ORDERED: Sulfamethox/Trimethoprim DS 800/160* TAB PO ONE (17:05)
== END 2017-02-26 17:21 | disposition home or self-care (01) ==
LOC: UCEAST 12:59
DX: S92.411A Displaced fracture of proximal phalanx of right great toe, initial encounter for closed fracture (principal); S82.891A Other fracture of right lower leg, initial encounter for closed fracture; X58.XXXA Exposure to other specified factors, initial encounter; Y93.9 Activity, unspecified; Y92.9 Unspecified place or not applicable; L03.115 Cellulitis of right lower limb; E10.9 Type 1 diabetes mellitus without complications; Z96.41 Presence of insulin pump (external) (internal); J45.909 Unspecified asthma, uncomplicated; F41.9 Anxiety disorder, unspecified; F32.9 Major depressive disorder, single episode, unspecified; Z98.42 Cataract extraction status, left eye; Z98.41 Cataract extraction status, right eye; Z96.1 Presence of intraocular lens; Z88.1 Allergy status to other antibiotic agents
CPT/HCPCS: 99212; A9270-GY; G0463

== ENCOUNTER 2018-03-03 14:32 | Emergency (ER) | payer OTHER ==
[2018-03-03 14:57] VITALS: BP 135/86
[2018-03-03] MEDS ORDERED: cefTRIAXone VIAL(*) 1,000 MG VIAL IM ONE (15:15)
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
== END 2018-03-03 15:44 | disposition home or self-care (01) ==
LOC: UCEAST 14:32
DX: N39.0 Urinary tract infection, site not specified (principal); E11.65 Type 2 diabetes mellitus with hyperglycemia; Z96.41 Presence of insulin pump (external) (internal); D64.9 Anemia, unspecified; J45.909 Unspecified asthma, uncomplicated; F41.9 Anxiety disorder, unspecified; F32.9 Major depressive disorder, single episode, unspecified; G43.909 Migraine, unspecified, not intractable, without status migrainosus; Z87.440 Personal history of urinary (tract) infections; Z90.710 Acquired absence of both cervix and uterus; Z85.43 Personal history of malignant neoplasm of ovary; Z88.1 Allergy status to other antibiotic agents; Z88.0 Allergy status to penicillin; Z83.3 Family history of diabetes mellitus; Z83.49 Family history of other endocrine, nutritional and metabolic diseases
CPT/HCPCS: 87077; 87086; 96372; 99212; G0463; J0696

== ENCOUNTER 2018-06-12 13:50 | Emergency (ER) | payer OTHER ==
[2018-06-12] MEDS ORDERED: NS 0.9% 1000 ML* 2,000 ML IV ONE (15:30)
[2018-06-12] MEDS ORDERED: Ondansetron INJ* 2 MG/ML VIAL IV ONE (16:06)
--- NOTE | 2018-06-12 16:14 | RAD ---
Indication: Head injury, nausea and vomiting. CT of the brain performed without IV contrast. Limited study due to patient motion and uncooperative patient. Grossly ventricular structures are midline. No midline shift is noted. No definite intracranial mass or hemorrhage is noted although the exam is severely limited. Repeat examination when the patient is able to do so is suggested. IMPRESSION: No gross hemorrhage or mass. Motion artifact severely limits evaluation.
--- NOTE | 2018-06-12 16:15 | RAD ---
Indication: Head and neck injury. CT of the cervical spine performed without IV contrast. Skull base demonstrates no fracture. Mastoid air cells are unremarkable. The C1 ring is intact. C2, C3 and C4 vertebra are intact without definite fracture. Motion artifact is noted at the C5 level limiting evaluation. Motion artifact is noted at C6 and C7 levels as well. Lung apices are unremarkable. IMPRESSION: No obvious fracture is noted from C1 through C4 however the remainder of the vertebral bodies are limited due to motion artifact.
[2018-06-12 16:26] LABS: Hematocrit 45 % (35-47); Hemoglobin 15.8 g/dl (12.0-16.0); Mean Corpuscular HGB Conc 35 g/dl (31-36); Mean Corpuscular Hemoglobin 27 pg (27-31); Mean Corpuscular Volume 78 fL (80-97); Mean Platelet Volume 8.3 um3 (7.4-10.4); Platelet Count 352 10^3/ul (150-450); Red Blood Count 5.79 10^6/ul (4.00-5.40); Red Cell Distribution Width 14 % (10.5-15); White Blood Count 9.4 10^3/ul (3.5-10.8)
[2018-06-12 16:44] LABS: EGFR Non-African American 105.1 (>60)
[2018-06-12 16:45] LABS: INR 1.02 (0.77-1.02)
[2018-06-12] MEDS ORDERED: PROCHLORPERAZINE INJ 5 MG/ML 2 ML VIAL IV PRN (17:33)
[2018-06-12] MEDS ORDERED: Ketorolac INJ* 30 MG/ML 1 ML VIAL IV PUSH ONE (17:33)
[2018-06-12] MEDS ORDERED: diPHENhydraMINE IV* 50 MG/ML 1 ml VIAL (BENADRYL) IV ONE (17:33)
[2018-06-12] MEDS ORDERED: diPHENhydraMINE IV* 50 MG/ML 1 ml VIAL (BENADRYL) SLOW PUSH ONE (17:58)
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
[2018-06-12 19:54] VITALS: BP 146/89
--- NOTE | 2018-06-12 19:55 | PN ---
Progress Note - Progress Note Date of Service: 06/12/18 Note: Patient signed out to me by Amita BALES awaiting results of migraine cocktail. Patient states she has had some relief of symptoms. Patient responding coherently and appropriately. States she just wants to go home. Patient has neurology follow-up for persistent migraines and associated dizziness. Will be discharged home in stable condition. Vital signs within normal limits. Labs unremarkable. Imaging unremarkable.
== END 2018-06-12 20:10 | disposition home or self-care (01) ==
LOC: ED 13:50
DX: S09.90XA Unspecified injury of head, initial encounter (principal); M54.2 Cervicalgia; R51 Headache; W22.8XXA Striking against or struck by other objects, initial encounter; Y92.9 Unspecified place or not applicable
CPT/HCPCS: 36415; 70450; 72125; 80053; 80307; 80320; 80329; 82803; 83605; 84702; 85027; 85610; 96374; 96375; 99283; G0480; J1200; J1885; J2405

== ENCOUNTER 2019-11-01 20:00 | Emergency (ER) | payer OTHER ==
--- OUTSIDE RECORDS SUMMARY | 2019-11-01 20:10 | XMS REPORT | Continuity of Care Document ---
:1970 External Reference #:[id number] Author Name Tasha Levi M.D. Address [address] [place] [address] Care Team Providers Name Role Phone Tasha Levi - Family Medicine Care Team Information Automatic Screwmaker Henrik Saunders - Orthopaedic Surgery Care Team Information Automatic Screwmaker [phone] Catrachito Payton - Endocrinology, Diabetes & Care Team Information Automatic Screwmaker Metabolism Problems Active Problems Provider Date Type 2 diabetes mellitus Onset: 10/07/2010 Recurrent major depressive episodes Xiomara Vance M.D. Onset: 02/16/2012 Arthralgia of the ankle and/or foot Xiomara Vance M.D. Onset: 02/16/2012 Osteoporosis Xiomara Vance M.D. Onset: 02/16/2012 Insomnia Xiomara Vance M.D. Onset: 02/16/2012 Myalgia & Myositis Unspecified Tasha Levi M.D. Onset: 02/07/2013 Psoriasis with arthropathy Tasha Levi M.D. Onset: 02/07/2013 Allergic condition Tasha Levi M.D. Onset: 02/07/2013 Depressive disorder Tasha Levi M.D. Onset: 04/14/2013 Disorder of shoulder Tasha Levi M.D. Onset: 04/14/2013 Tinnitus Tasha Levi M.D. Onset: 04/14/2013 History of chronic urinary tract infection Tasha Levi M.D. Onset: Abdominal pain Bismark Vieira M.D. Onset: 05/05/2016 Urinary tract infectious disease Bismark Vieira M.D. Onset: 05/05/2016 Retinopathy with type 1 diabetes mellitus Tasha Levi M.D. Onset: 10/2017 Genetic disorder carrier Tasha Levi M.D. 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 Onset: 2019 Sjogren's syndrome Tasha Levi M.D. Onset: 10/03/2019 Other osteoporosis with current Tasha Levi M.D. Onset: 10/03/2019 pathological fracture, unspecified site, subsequent encounter for fracture with routine healing Social History Type Date Description Comments Sex Unknown Tobacco Use Start: Unknown Never Smoked Cigarettes Smoking Status Reviewed: 11/13/17 Never Smoked Cigarettes ETOH Use Rare Tobacco Use Start: Unknown Patient has never smoked Allergies, Adverse Reactions, Alerts Active Allergies Reaction Severity Comments Date Augmentin Nausea and Vomiting 10/03/2010 Biaxin Nausea and Vomiting 10/03/2010 Seroquel high blood sugar 07/24/2014 Seasonal 02/02/2016 Medications Active Medications SIG Qnty Indications Ordering Date Provider Vitamin D take 1 capsule 8caps Tasha Harrison 10/13/2019 (Ergocalciferol) by mouth once Iron Levi 1.25mg weekly for 8 (19171 Ut) Capsules weeks. Temazepam 1by mouth every 30caps Tasha Harrison 07/03/2019 15mg Capsules night at bedtime Iron Levi as needed mdd 1 Ranitidine HCL take one tablet 60tabs K21.9 Tasha Harrison 06/13/2019 150mg by mouth two Iron Levi Tablets times daily Clindamycin HCL 2 pills by mouth 6caps Tasha Harrison 12/12/2018 300mg one hour prior Iron Levi Capsules to procedure Bupropion HCL take 3 tablets 90tabs Tasha Harrison 04/05/2018 75mg Tablets by mouth every Iron Levi day Alprazolam XR take one tablet 45tabs F43.11 Tasha Harrison 11/14/2017 1mg Tablets by mouth twice a Iron Levi ER 24HR day maximum daily dose = 2 tablets Prozac 3 by mouth every 90caps Tasha L. 10/26/2017 20mg Capsules day Iron Levi Cyclobenzaprine HCL 1 po q 6-8h 60tabs S29.011A Sherita Fields, 06/18/2017 5mg during the day MACHINE EGG WASHER Tablets and 2 by mouth at bedtime as needed Maxalt-MECHANICAL TECHNICAL SERVICE SPECIALIST 1 at beginning 12tabs 346.01 Tasha L. 03/14/2014 10mg Tablets of headache, Iron Levi Dispers repeat in 2 hours as necessary take on no more than 2 days a week. Montelukast Sodium take 1 tablet at 30tabs Tasha L. 03/04/2014 10mg bedtime Iron Levi Tablets Topiramate 1 by mouth twice 60tabs F32.9 Tasha Christy 11/20/2013 100mg Tablets a day Iron Levi Fluticasone Propionate Use 1 [place] In 48units Yvonne Martinez 02/07/2013 Each Nostril Two [place], SUPERVISOR MENDING 50mcg/Act Suspension Times A Day Magnesium twice a day Unknown 500mg Capsules Nucynta ER 150MG twice a day Unknown Hydrocodone/Acetaminoph 4 times a day Unknown en 7.5/325MG Probiotic 1 by mouth every Unknown Capsules day Prolia every 6 months Unknown 60mg/ml Solution Novolog use as directed Unknown 100Unit/ML Solution in insulin pump D-Mannose 1 po qd Unknown 500mg Powder Vitamin B-12 1 po qd Unknown 1000mcg Tablets Elidel apply sparingly 30gm Unknown 1% Cream bid prn Systane Ultra Unknown 0.4-0.3% Solution Genteal PM Unknown 85-15% Ointment Calcium Plus Vitamin D 1 po bid Unknown 600mg Vitamin D 1 po qd 60tabs Unknown 1000Unit Tablets Restasis use in eyes bid 1Bottle Unknown 0.05% Emulsion History Medications Alprazolam take 1/2 to one 60tabs Tasha Harrison 07/03/2019 - 0.5mg tablets by mouth Iron Levi 10/03/2019 Tablets once or twice daily. anxiety Cefdinir 1 by mouth twice 14caps Tasha L. 06/18/2019 - 300mg daily Iron Levi 10/03/2019 Capsules Sulfamethoxazole/Tri 1 by mouth twice 20tabs N39.0 Tasha Harrison 06/13/2019 - methoprim DS a day x 10 days Iron Levi 10/03/2019 800-160mg Tablets Eszopiclone 1 -2 by mouth at 60tabs G47.09 Tasha Harrison 06/13/2019 - 1mg bedtime Iron Levi 10/03/2019 Tablets Medications Administered in Office Medication SIG Qnty Indications Ordering Provider Date Brief Emotional/Behav GILBERTO Hussein 04/05/2018 Assessment W/ Scoring Doc Per Standard Inst Injection Immunizations CPT Code Status Date Vaccine Lot # [id number] Given 01/22/2014 Pneumococcal Immunization [id number] Vital Signs Date Vital Result Comment 10/03/2019 8:28am BP Systolic 136 mmHg BP Diastolic 82 mmHg Heart Rate 96 /min Body Temperature 97.8 F Respiratory Rate 16 /min Height 69 inches 5'9" Weight 222.00 lb BMI (Body Mass Index) 32.8 kg/m2 06/13/2019 9:42am BP Systolic 148 mmHg BP Diastolic 84 mmHg Heart Rate 118 /min Body Temperature 97.7 F Respiratory Rate 16 /min Weight 228.00 lb Results Test Acquired Date Facility Test Result H/L Range Note Laboratory test 10/03/2019 [facility]) Vitamin D25 12 Low 30-100 finding Vitamin B-12 609 pg/mL 230-1050 1 Laboratory test 10/03/2019 [facility] Folic Acid > 20.00 >3.99 2 finding (Folate) ng/mL Urine Culture And 06/13/2019 [facility] Urine Culture SEE RESULT 3 Sensitivities BELOW Ua - Micro (Fma) 06/13/2019 family medicine Appearance Cloudy (607)- - Color Yellow Glucose, Urine (Fma/CMC/CTX) Negative Bilirubin Negative Ketones Negative SP Grav 1.020 Blood Small PH 5.5 Protein SSA Neg. Urobil 0.2 Nitrite Negative Leukocytes (Fma/CMC/Centrex) Large Hyaline - /Lpf Granular - /Lpf WBC (Fma,Centrex) >75 RBC 1-3 Mucus (Fma/CBC/Centrex) Sm Amt /Lpf Epith Occas. /Lpf Bacteria 3+ /Hpf Amorphous (Fma/CMC/Centrex) - /Lpf Crystals, Fluid (Fma/CMC/CTX) - Z#Comments - [address] payton and Dr[address] Kassie Navarrete. 2 1 pour off tube with serum from rtt [id number] 3 SEE RESULT BELOW Name: JACIELWALESKA : [address]: Tasha Levi MD Acct: [id number] Unit: [id number] AGE: 49 Location: [facility] Re06/13/19 SEX: F Status: REG REF SPEC: [id number] DEVYN: 06/13/19-1022 [facility] DR: Tasha Levi MD REQ: [id number] RECD: 06/13/19 STATUS: COMP _ SOURCE: URINE SPDESC: ORDERED: Urine Culture COMMENTS: 1 [place] Urine Cx Tube [id number] Urine Source: Random Procedure Result Reported Site Urine Culture Final 06/15/19- 1000 ML Organism 1 ESCHERICHIA COLI [place] Count >100,000 (Many) CFU/ML 1. ESCHERICHIA COLI [facility] RX --------- ------ Ampicillin >=32 R Cefazolin <=4 S Cefepime <=1 S Ceftriaxone <=1 S Ciprofloxacin <=0.25 S Gentamicin <=1 S Levofloxacin <=0.12 S Meropenem <=0.25 S Nitrofurantoin <=16 S Tetracycline <=1 S Pipercillin/Tazobactam <=4 S Trimethoprim/Sulfamethoxazole <=20 S Amoxicillin/Clavulanic Acid 4 S Aztreonam <=1 S Contact the Microbiology Department for any additional antibiotic reporting. * [facility] - Main Lab . END OF REPORT DEPARTMENT OF PATHOLOGY, [address] [place] [address] Delmer Winston M.D. Director MELVINA # [id number] Procedures Date Code Description Status 06/09/2016 [id number] Diabetic Retinal Eye Exam Completed 03/21/2015 [id number] Bone Mineral Density Test Completed 10/21/2012 [id number] Mammogram Completed Medical Devices Description No Information Available Encounters Type Date Location Provider Dx Diagnosis Office Visit 10/03/2019 [facility] Tasha Harrison E10.319 Type 1 diabetes w 8:30a [facility] diabetic rtnop w/o macular edema E55.9 Vitamin D deficiency, unspecified L40.50 Arthropathic psoriasis, unspecified F33.9 Major depressive disorder, recurrent, unspecified M80.80xD Oth osteopor w crnt path fx, unsp site, 7thD Z14.8 Genetic carrier of other disease M88.9 Osteitis deformans of unspecified bone M35.00 Sicca syndrome, unspecified D51.8 Other vitamin B12 deficiency anemias Office Visit 06/13/2019 9:40a [facility] Tasha Harrison N39.0 Urinary tract Iron Levi infection, site not specified S90.811A Abrasion, right foot, initial encounter G47.09 Other insomnia K21.9 Gastro-esophageal reflux disease without esophagitis D51.8 Other vitamin B12 deficiency anemias E55.9 Vitamin D deficiency, unspecified Assessments Date Code Description Provider 10/03/2019 E10.319 Type 1 diabetes mellitus with unspecified Tasha Levi M.D. diabetic retinopathy without macular edema 10/03/2019 E55.9 Vitamin D deficiency, unspecified Tasha Levi M.D. 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 10/03/2019 F33.9 Major depressive disorder, recurrent, Tasha Levi M.D. unspecified 10/03/2019 M80.80xD Other osteoporosis with current Tasha Levi M.D. pathological fracture, unspecified site, subsequent encounter for fracture with routine healing 10/03/2019 Z14.8 Genetic carrier of other disease Tasha Levi M.D. 10/03/2019 M88.9 Osteitis deformans of unspecified bone Tasha Levi M.D. 10/03/2019 M35.00 Sicca syndrome, unspecified Tasha Levi M.D. 10/03/2019 D51.8 Other vitamin B12 deficiency anemias Tasha Levi M.D. 06/13/2019 N39.0 Urinary tract infection, site not Tasha Levi M.D. specified 06/13/2019 S90.811A Abrasion, right foot, initial encounter Tasha Levi M.D. 06/13/2019 G47.09 Other insomnia Tasha Levi M.D. 06/13/2019 K21.9 Gastro-esophageal reflux disease without Tasha Levi M.D. esophagitis 06/13/2019 D51.8 Other vitamin B12 deficiency anemias Tasha Levi M.D. 06/13/2019 E55.9 Vitamin D deficiency, unspecified Tasha Levi M.D. Plan of Treatment 10/03/2019 - Tasha Levi M.D.E10.319 Type 1 diabetes mellitus with unspecified diabetic retinopathy without macular edemaComments:letter written for social service agencies stating she cannot work.will fill out disability paperwork.E55.9 Vitamin D deficiency, wcfoceuhatbR29.50 Arthropathic psoriasis, hatcqjyiwlgQ55.9 Major depressive disorder, recurrent, ymuayxqnyjxG19.80xD Other osteoporosis with current pathological fracture, unspecified site, subsequent encounter for fracture with routine dckwxkoM40.8 Genetic carrier of other ynpuhyhS74.9 Osteitis deformans of unspecified boneM35.00 Sicca syndrome, vbqdovhijfpO98.8 Other vitamin B12 deficiency anemiasAllComments:Medication Management Patient Understands medications she 's taking? Yes No Are there Barriers to Adherence? Yes No Has the patient been asked about herbal supplements and therapies, and OTC meds? Yes No Care Plan1. Patient has been queried about patient's goals/preferences and functional/lifestyle goals at relevant visits. If relevant, describe: na2. Treatment goals as explained to the patient: above3. Are there barriers to meeting treatment goals? Yes No If Yes, please describe:4. Self- Management goals as described to the patient: Yes No Functional Status Description No Information Available Mental Status Description No Information Available Referrals Refer to Reason for Referral Status Appt Date Noe Coughlin MD URGENT REFERRAL early cellulitis at site of hard Sent to treat osteomyelitis in 2018 right foot. jw [address] [place] [address] [place] [address] [phone]
[2019-11-01] MEDS ORDERED: Lidocaine/Epineph/Tetraca SOL 4 ML BTL (LET solution) TOPICAL ONE (20:19)
[2019-11-01] MEDS ORDERED: Ibuprofen TAB* 600 MG PO ONE (20:19)
[2019-11-01 20:24] VITALS: BP 173/88
--- NOTE | 2019-11-01 20:31 | UC ---
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 SHE DID NOT REALIZE IT WAS STILL PLUGGED IN AND SHE SUSTAINED A LACERATION TO THE TUFT OF HER LEFT INDEX FINGER. UP-TO-DATE TETANUS 2 YEARS AGO. - History Of Current Complaint Stated Complaint: FINGER LAC Time Seen by Provider: 11/01/19 20:02 Hx Obtained From: Patient, Family/Industrial Designer - SISTER Hx Last Menstrual Period: HYSTERECTOMY 2004 Laceration Location: Finger - LEFT INDEX Mechanism Of Injury: Sharp Trauma Onset/Duration: Sudden Onset, Lasting Minutes, Still Present Severity: Moderate Pain Intensity: 8 Pain Scale Used: 0-10 Numeric Aggravating Factors: Movement Related History: Dominant Hand Right - Allergies/Home Medications Allergies/Adverse Reactions: Allergies Allergy/AdvReac Type Severity Reaction Status Date / Time amoxicillin AdvReac Vomiting Verified 10/29/19 14:20 clarithromycin AdvReac Vomiting Verified 10/29/19 14:20 clavulanic acid AdvReac Vomiting Verified 10/29/19 14:20 PMH/Surg Hx/FS Hx/Imm Hx Endocrine History: Diabetes Respiratory History: Asthma Other Cancer History: ovarian cancer Other History Of: Negative For: Anticoagulant Therapy - Surgical History Surgical History: Yes Surgery Procedure, Year, and Place: LEFT HIP PINNING, [facility]. INSULIN PUMP, (PT REMOVED OUTER PART FOR MRI). HYSTERECTOMY & OOPHERECTOMY,[facility]. 1994 BILATERAL CATARACT EXTRACTION WITH IOL IMPLANTS, [facility]. 1999 BILATERAL VITRECTOMY, [place]. 2000 DEBRIDEMENT AND SPLIT THICKNESS SKIN GRAFT BURN WOUND RIGHT LEG, [facility]. 2009 RELEASE LEFT RING TRIGGER FINGER,. 2009 RELEASE RIGHT INDEX TRIGGER FINGER, [facility]. 2011 RELEASE LEFT INDEX AND MIDDLE TRIGGER FINGERS, [facility]. 2014 VAGINAL TISSUE CAUTERIZATION, [facility]. 2015 A1 NAI RELEASE RIGHT LONG AND SMALL FINGER, [facility]. 2001 SMALL SKIN GRAFT RIGHT LEG - Family History Known Family History: Positive: Diabetes - TYPE 2, Other - Thyroid disease - Social History Alcohol Use: None Substance Use Type: None Substance Use Comment - Amount & Last Used: nucynta Smoking Status (MU): Never Smoked Tobacco Have You Smoked in the Last Year: No - Immunization History Most Recent Influenza Vaccination: 2014 Most Recent Tetanus Shot: "fairly recently" Most Recent Pneumonia Vaccination: received Review of Systems All Other Systems Reviewed And Are Negative: Yes Constitutional: Positive: Negative Skin: Positive: Other - LACERATION Respiratory: Positive: Negative Cardiovascular: Positive: Negative Gastrointestinal: Positive: Negative Physical Exam Triage Information Reviewed: Yes Appearance: Well-Appearing, No Pain Distress, Well-Nourished Vital Signs: Initial Vital Signs Temp 97.9 F 11/01/19 20:15 Pulse 112 11/01/19 20:15 Resp 20 11/01/19 20:15 BP 173/88 11/01/19 20:15 Pulse Ox 99 11/01/19 20:15 Vital Signs Reviewed: Yes Eyes: Positive: Conjunctiva Clear ENT: Positive: Hearing grossly normal Neck: Positive: Supple Respiratory: Positive: No respiratory distress, No accessory muscle use Cardiovascular: Positive: Pulses Normal Musculoskeletal: Positive: ROM Intact Neurological: Positive: Alert Psychological: Positive: Age Appropriate Behavior Skin: Positive: Other - IRREGULAR LACERATION TUFT LEFT INDEX FINGER. TOTAL LENGTH APPROX 4CM. 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 MULTIPLE SMALL LACERATION LINES NOT AMENABLE TO SUTURING. BLEEDING WAS CAUTERIZED WITH SILVER NITRATE STICKS AND HEMOSTASIS WAS ACHIEVED. SKIN EDGES APPROXIMATED TO THE BEST OF MY ABILITY AND ANCHORED WITH STERI- STRIPS. TUBE GAUZE APPLIED. KEFLEX FOR INFECTION PROPHYLAXIS. PATIENT ALREADY HAS PAIN MEDICINE ON BOARD. FOLLOW-UP WITH PCP IN A FEW DAYS FOR REEVALUATION. - Diagnosis Provider Diagnosis: Laceration of left index finger Discharge ED - Sign-Out/Discharge Documenting (check all that apply): Patient Departure All imaging exams completed and their final reports reviewed: No Studies - Discharge Plan Condition: Stable Disposition: HOME Patient Education Materials: Laceration (ED) Referrals: Tasha Levi MD [Primary Care Provider] - 3 Days Additional Instructions: SEEK FOLLOW-UP IF YOU DEVELOP SPREADING REDNESS OF THE SKIN, PURULENT DRAINAGE, FEVER, INCREASED PAIN OR ANY OTHER CONCERNING SYMPTOMS. THE STERISTRIPS WILL FALL OFF ON THEIR OWN IN THE NEXT 1-2 WEEKS. DO NOT PUT ANY OINTMENT ON TOP OF THEM. DO NOT SUBMERGE IN WATER FOR PROLONGED PERIOD OF TIME. OKAY FOR BRIEF SHOWER AFTER 24 HOURS AND THEN BE SURE TO ALLOW TO DRY COMPLETELY. TAKE THE ANTIBIOTICS TWICE DAILY PRESCRIBED. YOUR BLOOD PRESSURE WAS ELEVATED TODAY. THIS MAY BE DUE TO YOUR ACUTE CONDITION. MONITOR AND FOLLOW-UP WITH YOUR PCP WITHIN 4 WEEKS IF IT HAS NOT RETURNED TO NORMAL. - Billing Disposition and Condition Condition: STABLE Disposition: Home
[2019-11-01] MEDS ORDERED: Silver Nitrate/Potassium Nitr* 1 PAK (1 PAK PER PATIENT) TOPICAL ONE (20:35)
[2019-11-01] MEDS ORDERED: Cephalexin CAP* 500 MG PO ONE (21:09)
== END 2019-11-01 21:30 | disposition home or self-care (01) ==
LOC: UCEAST 20:00
DX: S61.211A Laceration without foreign body of left index finger without damage to nail, initial encounter (principal); E11.9 Type 2 diabetes mellitus without complications; J45.909 Unspecified asthma, uncomplicated; W26.9XXA Contact with unspecified sharp object(s), initial encounter; Y92.9 Unspecified place or not applicable; Z88.0 Allergy status to penicillin; Z88.1 Allergy status to other antibiotic agents; Z85.43 Personal history of malignant neoplasm of ovary
CPT/HCPCS: 99213; A9270-GY; G0463

== ENCOUNTER 2019-11-06 13:00 | Emergency (ER) | payer OTHER ==
--- NOTE | 2019-11-06 14:36 | UC ---
HPI Wound/Suture Re-check - HPI Summary HPI Summary: 41-year-old female presenting with need for dressing change of her finger laceration. Patient states the injury occurred on 11/01/2019 and was treated here with steri strips and tube gauze for avulsion. No repair was done. Patient states she has not changed the dressing since. Attempted to last night but says there was so much dried blood that she did not want to take it off and risk opening it up again so she came here. States she was given keflex prescription that she filled on 11/02/2019 but that she has missed a few doses. States pain in the finger is no better or worse than it was when it first occurred. Denies fever and chills. Denies n/v. Notes h/o staph infection 20 years ago. Denies MRSA. - History Of Current Complaint Chief Complaint: UCUpperExtremity Stated Complaint: NEEDS DRESSING CHANGED Hx Obtained From: Patient Hx Last Menstrual Period: HYSTERECTOMY 2004 Pain Intensity: 3 Pain Scale Used: 0-10 Numeric - Allergies/Home Medications Allergies/Adverse Reactions: Allergies Allergy/AdvReac Type Severity Reaction Status Date / Time amoxicillin AdvReac Vomiting Verified 11/06/19 13:47 clarithromycin AdvReac Vomiting Verified 11/06/19 13:47 clavulanic acid AdvReac Vomiting Verified 11/06/19 13:47 PMH/Surg Hx/FS Hx/Imm Hx Other History Of: Negative For: Anticoagulant Therapy - Surgical History Surgical History: Yes Surgery Procedure, Year, and Place: LEFT HIP PINNING, [facility]. INSULIN PUMP, (PT REMOVED OUTER PART FOR MRI). HYSTERECTOMY & OOPHERECTOMY,[facility]. 1994 BILATERAL CATARACT EXTRACTION WITH IOL IMPLANTS, [facility]. 1999 BILATERAL VITRECTOMY, [place]. 2000 DEBRIDEMENT AND SPLIT THICKNESS SKIN GRAFT BURN WOUND RIGHT LEG, [facility]. 2009 RELEASE LEFT RING TRIGGER FINGER,. 2009 RELEASE RIGHT INDEX TRIGGER FINGER, [facility]. 2010 RELEASE LEFT INDEX AND MIDDLE TRIGGER FINGERS, [facility]. 2013 VAGINAL TISSUE CAUTERIZATION, [facility]. 2015 A1 NAI RELEASE RIGHT LONG AND SMALL FINGER, [facility]. 2000 SMALL SKIN GRAFT RIGHT LEG - Family History Known Family History: Positive: Diabetes - TYPE 2, Other - Thyroid disease - Social History Alcohol Use: None Substance Use Type: None Substance Use Comment - Amount & Last Used: nucynta Smoking Status (MU): Never Smoked Tobacco Have You Smoked in the Last Year: No - Immunization History Most Recent Influenza Vaccination: 2014 Most Recent Tetanus Shot: "fairly recently" Most Recent Pneumonia Vaccination: received Review of Systems All Other Systems Reviewed And Are Negative: Yes Constitutional: Positive: Negative. Negative: Fever, Chills Skin: Positive: Other - avulsion of L index fingertip Respiratory: Positive: Negative Cardiovascular: Positive: Negative Gastrointestinal: Positive: Negative. Negative: Vomiting, Nausea Musculoskeletal: Positive: Negative Neurological: Positive: Negative Physical Exam - Summary Physical Exam Summary: Vital Signs Reviewed: Yes A+Ox3, no distress Eyes: Conjunctiva Clear ENT: Hearing grossly normal Neck: Positive: Supple Respiratory: Positive: No respiratory distress, No accessory muscle use Cardiovascular: skin reflects adequate perfusion Musculoskeletal Exam: VILLA x 4 without difficulty Neurological: Positive: Alert Psychological: Positive: age appropriate behavior Skin: Positive: nonhealed skin avulsion of L index finger, dried blood around wound with scant amount of purulent discharge, no warmth, no edema, minimal TTP , no fluctuance, no red streaking Vital Signs: Initial Vital Signs Temp 98.0 F 11/06/19 13:41 Pulse 94 11/06/19 13:41 Resp 20 11/06/19 13:41 BP 127/71 11/06/19 13:41 Pulse Ox 99 11/06/19 13:41 Course/Dx - Course Course Of Treatment: Patient presenting with request for dressing change of left index finger after fingertip avulsion occurred on 11/01/2019. Patient's initial dressing was soaked and gently removed to reveal healing fingertip avulsion with minimal purulent drainage being expressed. I took a sample and sent it for culture. Patient states she was given Keflex but has not been taking doses regularly. I change the treatment from Keflex to doxycycline and instructed to discontinue Keflex use. Instructed to continue with cleansing daily along with daily dressing changes. Instructed to go to ED with any new or worsening symptoms. Patient voiced understanding and agreed with treatment plan. - Diagnosis Provider Diagnosis: Infected finger laceration, Encounter for dressing of wound Discharge ED - Sign-Out/Discharge Documenting (check all that apply): Patient Departure All imaging exams completed and their final reports reviewed: No Studies - Discharge Plan Condition: Stable Disposition: HOME Prescriptions: Sulfamethox/Trimethoprim DS* [Bactrim DS 800/160 TAB*] 1 tab PO BID #14 tab Patient Education Materials: Acute Wound Care (ED), Skin Avulsion (ED) Referrals: Tasha Levi MD [Primary Care Provider] - If Needed Additional Instructions: Take Bactrim as prescribed for the treatment of your skin infection. Discontinue Keflex. A culture has been sent and you will be notified with any results that warrant change in treatment. Keep the area clean and dry. Change dressing daily. Soak with warm water before removing if the dressing is adhered to skin. Go to the emergency room if you experience fever, increasing redness and warmth to the area, drainage, or nausea and vomiting. - Billing Disposition and Condition Condition: STABLE Disposition: Home - Attestation Statements Provider Attestation: This patient was not seen by me. I was available for consult. Chart reviewed. MAXWELL
[2019-11-06 16:13] VITALS: BP 125/80
== END 2019-11-06 15:40 | disposition home or self-care (01) ==
LOC: UCEAST 13:00
DX: S61.211D Laceration without foreign body of left index finger without damage to nail, subsequent encounter (principal); L08.9 Local infection of the skin and subcutaneous tissue, unspecified; Z88.0 Allergy status to penicillin; Z88.1 Allergy status to other antibiotic agents; X58.XXXD Exposure to other specified factors, subsequent encounter
CPT/HCPCS: 87070; 87205; 99212; G0463